=== PATIENT | male | born 1950 | race Caucasian/White ===

== ENCOUNTER → 2016-09-05 | Outpatient (CLI) | payer BC, OTHER ==
[~2016-09-05] MED LIST: CRG625 PO; CZR50 PO; HYG25 PO; KLN5 PO; MULT-589 PO; POTA10TA PO; [UNRECOGNIZED DRUG - CODE] PO
--- NOTE | 2016-09-05 13:37 | DIAGNOSTIC IMAGING REPORT ---
RIGHT KNEE INCLUDING BILATERAL STANDING AP VIEWS CLINICAL HISTORY: RIGHT KNEE PAIN Right COMPARISON: 06/03/2016 DISCUSSION: The joint spaces appear symmetric. No acute fractures are visualized. There are no erosive or destructive changes. There is a tiny dorsal patellar spur. A nonaggressive appearing fibro-osseous lesion involving the medial cortex of the distal left femoral metaphysis remain stable. IMPRESSION: 1. Minimal osteoarthritic changes. No acute fractures. Electronically signed by: Herson Wright M.D. 09/05/2016 1:35 PM Dictated Date/Time: 09/05/2016 1:34 PM
== END | disposition home or self-care (01) ==
LOC: C.RDSM 10:31
PROVIDERS: ATTEND Physical Medicine & Rehabilitation Sports Medicine
DX: M25.561 Pain in right knee (principal)

== ENCOUNTER → 2016-10-10 | Outpatient (CLI) | payer BC ==
--- NOTE | 2016-10-10 10:31 | DIAGNOSTIC IMAGING REPORT ---
MRI OF THE RIGHT KNEE CLINICAL HISTORY: Right knee pain an instability. COMPARISON STUDY: Radiographs of the right knee dated 09/05/2016. MRI of the right knee dated 07/10/2016. TECHNIQUE: MRI of the right knee was performed utilizing proton density, T1, and T2-weighted sequences in the axial, sagittal, coronal planes. IV contrast was not administered for this examination. Examination is significant degraded by open MRI technique. FINDINGS: Menisci: There is maceration and extensive degenerative tearing seen involving the body and posterior horn of the medial meniscus. There is persistent bucket-handle type tear, with a fragment flipped laterally along the femoral condyle. The lateral meniscus appears intact. Ligaments: The anterior and posterior cruciate ligaments are intact. There is high-grade (at least grade 2) tearing of the medial collateral ligament. Some of the fibers remain intact. The lateral collateral ligament complex appears preserved. Extensor mechanism: The extensor mechanism is intact. Hoffa's fat pad is normal in appearance. Articular cartilage and bone: There is mild degenerative thinning of the articular cartilage along the weightbearing surface in the medial and lateral compartments. There is minimal reactive marrow edema within the medial femoral condyle. The articular cartilage at the patellofemoral joint appears preserved. Bony contusion is identified within the medial femoral condyle and the medial tibial plateau. There is no MRI evidence of fracture. Joint effusion: There is a moderate joint effusion. Soft tissues: There is a large popliteal cyst which measures up to 7.5 cm. Subcutaneous soft tissue edema is present around the knee. The musculature surrounding the knee joint is normal in bulk and signal intensity. IMPRESSION: 1. There is extensive maceration with a bucket-handle type tear involving the body and posterior horn of the medial meniscus. The fragment is flipped laterally along the femoral condyle. 2. There is high-grade partial-thickness tearing of the medial collateral ligament. 3. The lateral collateral ligament complex, the cruciate ligaments, and the lateral meniscus appear preserved. 4. Bony contusions are identified within the medial femoral condyle and the medial tibial plateau. 5. Moderate joint effusion. 6. Minimal degenerative change as above. 7. Popliteal cyst. Electronically signed by: Christian Delgado M.D. 10/10/2016 10:29 AM Dictated Date/Time: 10/10/2016 10:20 AM
== END | disposition home or self-care (01) ==
LOC: C.OPENMRI 08:33
PROVIDERS: ATTEND Physical Medicine & Rehabilitation Sports Medicine
DX: M25.561 Pain in right knee (principal)

== ENCOUNTER → 2017-02-26 | Outpatient (CLI) | payer BC ==
[2017-02-26 13:48] LABS: BLOOD UREA NITROGEN 23 mg/dl (7-18); BUN/CREATININE RATIO 20.8 (10-20); CALCIUM 8.8 mg/dl (8.5-10.1); CARBON DIOXIDE 31 mmol/L (21-32); CHLORIDE 105 mmol/L (98-107); GLUCOSE 94 mg/dl (70-99); POTASSIUM 3.5 mmol/L (3.5-5.1); SODIUM 141 mmol/L (136-145)
== END | disposition home or self-care (01) ==
LOC: C.LABBC 09:25
PROVIDERS: ATTEND Physician Assistant
DX: Z00.00 Encounter for general adult medical examination without abnormal findings (principal); I10 Essential (primary) hypertension

== ENCOUNTER → 2017-03-08 | Outpatient (CLI) | payer BC ==
[~2017-03-08] MED LIST changes: +MAGNEVIST IV PRN
--- NOTE | 2017-03-08 11:04 | DIAGNOSTIC IMAGING REPORT ---
MRI OF THE BRAIN COMBO INTERNAL ARTERY CANAL PROTOCOL CLINICAL HISTORY: Meniere's disease. Dizziness. COMPARISON STUDY: MRI of the brain dated 05/19/2012. CT of the brain dated 09/15/2015. TECHNIQUE: MRI of the brain was performed utilizing various T1 and T2-weighted sequences in the axial, sagittal, and coronal planes. Contrast-enhanced sequences were acquired following the administration of 18 cc of Magnevist. Additional high-resolution imaging through the skull base was performed both pre and postcontrast for further assessment of the internal auditory canals. The multiple sclerosis protocol was also utilized. FINDINGS: Brain parenchyma: Again seen are numerous foci of T2 signal abnormality involving the subcortical and periventricular white matter. There is no hemorrhage or mass effect. No associated abnormal enhancement is identified on the postcontrast images. There is no restricted diffusion to suggest acute ischemia. No enhancing mass lesion is identified on the postcontrast images. Bynum-white matter differentiation is preserved. No extra-axial fluid collection is seen. The cerebellar tonsils are normal in configuration. Ventricles, sulci, and cisterns: Normal in configuration. Internal auditory canals: No enhancing mass lesion is identified in the cerebellopontine angle bilaterally. No mass or abnormal enhancement is identified along the course of the internal artery canals. The middle ear structures are normal as visualized. Pituitary and sella: Unremarkable. Intracranial vasculature: Normal flow voids are maintained at the skull base. Orbits: The bony orbits are grossly intact. Orbital contents are normal in appearance. Sinuses and mastoids: Clear. Calvarium: Unremarkable. Cervical cord: Partially visualized cervical spinal cord is normal in morphology and signal intensity. IMPRESSION: 1. No acute intracranial abnormality. 2. Unremarkable MRI assessment of the internal artery canals. 3. Again seen are numerous T2 hyperintense lesions involving the subcortical and periventricular white matter. This has modestly progressed from the 2012 examination. Differential considerations remain microangiopathic disease versus a demyelinating process such as multiple sclerosis. Electronically signed by: Christian Delgado M.D. 03/08/2017 11:03 AM Dictated Date/Time: 03/08/2017 10:51 AM
== END | disposition home or self-care (01) ==
LOC: C.MRIBC 02-26 09:04
PROVIDERS: ATTEND Physician Assistant
DX: G37.9 Demyelinating disease of central nervous system, unspecified (principal); R42 Dizziness and giddiness

== ENCOUNTER 2017-04-04 18:19 | Emergency (ER) | payer BC ==
[~2017-04-04 18:19] MED LIST changes: -MAGNEVIST IV PRN
== END 2017-04-04 18:30 | disposition left against medical advice (07) ==
LOC: C.EDB 18:20
DX: M25.562 Pain in left knee (principal)

== ENCOUNTER → 2017-04-23 | Outpatient (CLI) | payer BC ==
--- NOTE | 2017-04-23 14:59 | DIAGNOSTIC IMAGING REPORT ---
LUMBAR SPINE 5 VIEWS CLINICAL HISTORY: Low back pain. FINDINGS: 5 views of the lumbar spine are correlated with abdominal CT dated 01/20/2007. The skeletal structures are osteopenic. There is no radiographic evidence of fracture or malalignment. Vertebral body height and alignment are maintained. There is straightening of the lumbar lordosis. Small anterior osteophytes are seen throughout. The transverse and spinous processes appear intact. There is no evidence of spondylolysis. Mild facet arthropathy is seen in the lower lumbar region. There is advanced disc space narrowing at L5-S1 with associated endplate sclerosis. Mild disc space narrowing is seen at L1-L2 and L2-L3. The bony pelvis is intact as visualized. Mild sclerotic change is noted in the sacroiliac joints. There is a nonobstructed abdominal bowel gas pattern. There is mild atherosclerotic calcification of the abdominal aorta. IMPRESSION: 1. No acute bony abnormality is seen involving the lumbar spine. 2. Osteopenia and mild spondylotic change as above. Electronically signed by: Christian Delgado M.D. 04/23/2017 2:58 PM Dictated Date/Time: 04/23/2017 2:56 PM
== END | disposition home or self-care (01) ==
LOC: C.RDSM 12:29
PROVIDERS: ATTEND Internal Medicine
DX: M54.5 Low back pain (principal)

== ENCOUNTER → 2017-11-26 | Outpatient (CLI) | payer OTHER ==
--- NOTE | 2017-11-26 11:42 | DIAGNOSTIC IMAGING REPORT ---
R KNEE 4 OR MORE CLINICAL HISTORY: RIGHT KNEE PAIN COMPARISON STUDY: Right knee 09/05/2016. FINDINGS: Mild cartilage space narrowing within the medial compartment of the right knee, unchanged. No fracture or dislocation. Soft tissues are unremarkable. No knee effusion. Stable 1.4 cm fibro-osseous lucent lesion within the distal left femur. This has a nonaggressive appearance. Tiny marginal osteophytes within the patella. IMPRESSION: No change from the prior study. Minimal osteoarthritic changes within the right knee are again noted. Electronically signed by: Waqar Dan M.D. 11/26/2017 11:41 AM Dictated Date/Time: 11/26/2017 11:39 AM
== END | disposition home or self-care (01) ==
LOC: C.RDSM 11:10
PROVIDERS: ATTEND Internal Medicine
DX: M25.561 Pain in right knee (principal)

== ENCOUNTER 2022-06-26 05:05 | Observation (INO) ==
--- NOTE | 2022-06-06 08:51 | PAT Medication Instructions ---
Medication Instructions Date of Service June 06, 2022 Home Medications Medication Instructions Recorded sildenafil 50 mg tablet 50 mg PO DAILY PRN sexual activity 02/17/21 #30 tabs carvedilol 6.25 mg tablet 6.25 mg PO BID #180 tabs 09/29/21 potassium chloride 10 mEq 10 meq PO .COMPLEX #270 Tabs 09/29/21 tablet,extended release fluvoxamine 100 mg tablet 25 mg PO QPM multivitamin (Daily Multi-Vitamin tablet) 1 tab PO QAM sildenafil 50 mg tablet 50 mg PO DAILY PRN cholecalciferol (vitamin D3) 1 tab PO QAM carvedilol 6.25 mg tablet 6.25 mg PO BID potassium chloride 10 mEq tablet,extended release 10 meq PO .COMPLEX clonazepam 0.5 mg tablet 0.125 mg PO BID atorvastatin 10 mg tablet 10 mg PO QPM chlorthalidone 25 mg tablet 25 mg PO QPM losartan 100 mg tablet 100 mg PO QPM DO NOT take the morning of surgery multivitamin (Daily Multi-Vitamin tablet) 1 tab PO QAM sildenafil 50 mg tablet 50 mg PO DAILY PRN cholecalciferol (vitamin D3) 1 tab PO QAM potassium chloride 10 mEq tablet,extended release 10 meq PO .COMPLEX Take morning of surgery With a small sip of water, OTHERWISE NOTHING TO EAT OR DRINK AFTER MIDNIGHT: carvedilol 6.25 mg tablet 6.25 mg PO BID clonazepam 0.5 mg tablet 0.125 mg PO BID Take evening before surgery fluvoxamine 100 mg tablet 25 mg PO QPM carvedilol 6.25 mg tablet 6.25 mg PO BID clonazepam 0.5 mg tablet 0.125 mg PO BID atorvastatin 10 mg tablet 10 mg PO QPM chlorthalidone 25 mg tablet 25 mg PO QPM losartan 100 mg tablet 100 mg PO QPM Other Notes If you have any questions please call us at [phone] or [phone] or [phone] or [phone]
--- NOTE | 2022-06-12 13:08 | Anesthesiology Consultation ---
Date of Service June 12, 2022 Assessment & Plan (1) Encounter for pre-operative examination: Chart Review Chart Review: Acceptable Risk for Surgery and Patient seen in Pre Admission Testing Pt currently scheduled as 23 hour observation. If surgeon decides to change patient to Same Day Joint, patient would be acceptable risk for TKA, pending patient is motivated, has good support and surgeon's office completes [facility] preop requirements. Per [facility] appt on 06/12/22, patient denies any recent travel or large group activities. Pt is vaccinated for Covid. Pt did test positive for Covid one month ago (home test). Had fatigue, loss of taste, cough, SOB, fever. Symptoms have since resolved. PCR Covid test done at [facility] appt on 06/12/22=negative. Educated on importance of using Covid precautions one week prior to surgery PCP Clearance Request 06/11/22= "Yes" patient is medically cleared for surgery. Last seen by nephrology 05/17/22= Pt follows with nephro for HTN. BP improved from prior and overall acceptable. BP controlled with current medications. Component of white coat HTN. Has chronic bradycardia but also appears to be tolerating carvedilol well. Follow up in six months. BP 128/86 Teaching & Discussion Pre-Anesthesia Teaching/Discussion Notes: Instructed NPO after midnight before surgery,except medications with 15 cc of water. Medication instructions provided according to the [facility] guidelines. History Surgery Operation Date: 06/26/22 07:00 Proposed Procedures p Right Total Knee Arthroplasty - Dong Bazzi MD Height/Weight Height: 5 ft 10.5 in Weight: 97.3 kg Allergies Allergy/AdvReac Type Severity Reaction Status Date / Time amoxicillin Allergy Unknown Rash Verified 06/05/22 15:43 clavulanic acid Allergy Unknown RASH Verified 06/05/22 15:43 [From Augmentin] lactose Allergy Unknown GI UPSET Verified 06/05/22 15:43 levofloxacin [From Levaquin] Allergy Unknown RASH Verified 06/05/22 15:43 Penicillins Allergy Unknown Rash Verified 06/05/22 15:43 codeine AdvReac Unknown ileus Verified 06/05/22 15:43 Medications Home Medications Medication Instructions Recorded Confirmed Last Taken fluvoxamine 100 mg tablet 25 mg PO QPM #90 tabs 06/25/19 06/05/22 Unknown multivitamin (Daily Multi-Vitamin 1 tab PO QAM 06/25/19 06/05/22 Unknown tablet) sildenafil 50 mg tablet 50 mg PO DAILY PRN sexual activity 02/17/21 06/05/22 Unknown #30 tabs cholecalciferol (vitamin D3) 1 tab PO QAM 05/12/21 06/05/22 Unknown carvedilol 6.25 mg tablet 6.25 mg PO BID #180 tabs 09/29/21 06/05/22 Unknown potassium chloride 10 mEq 10 meq PO .COMPLEX #270 Tabs 09/29/21 06/05/22 Unknown tablet,extended release clonazepam 0.5 mg tablet 0.125 mg PO BID 11/10/21 06/05/22 Unknown atorvastatin 10 mg tablet 10 mg PO QPM 06/05/22 06/05/22 Unknown chlorthalidone 25 mg tablet 25 mg PO QPM 06/05/22 06/05/22 Unknown losartan 100 mg tablet 100 mg PO QPM 06/05/22 06/05/22 Unknown Past Medical History Medical History Hearing deficit BL GREEN- Wears hearing aids bilaterally History of meningitis 1983 History of migraine HLD (hyperlipidemia) Pt denies- takes statin for preventative secondary to age Hypertension Menieres disease Intermittent - improved with exercises Exercise / Class Metabolic Activity II 4-5 Yardwork/Stairs/Walk up hill (one flight of stairs - no chest pain or SOB ) Past Family History Family History Father Hypertension Cancer Mother Stroke Denies family history of Hearing loss No family history of adverse response to anesthesia No family history of bleeding disorder Heart disease Allergies Kidney disease Asthma Past Surgical History Surgical History H/O elbow surgery 2016 - Lt H/O foot surgery 2005 - Rt H/O neck surgery 2018 & 2019 History of arthroscopic knee surgery Rt History of back surgery History of cervical spinal surgery limited ROM "painful to look up" History of colonoscopy History of nasal polypectomy Hx of appendectomy Past Anesthesia History No Hx of Anesthesia Complications and No Family Hx of Anesthesia Complications History of PONV No Hx of PONV and No Hx of Motion Sickness Social History Smoking Status: Never smoker Do You Dip or Chew Tobacco: No Hx Alcohol Use: Yes Alcohol type: beer alcohol intake frequency: a few times a week Hx Substance Use: No substance use type: does not use Review of Systems Minimal residual cough - just in the morning- mild- dry- since Covid infection one month ago- significantly improved Hx of snoring - no witnessed apnea- no hx of sleep study Patient denies chest pain, shortness of breath, dyspnea on exertion, reflux, wheezing, palpitations. No hx of seizures, stroke, [place]. No hx of blood clots or blood transfusions Physical Exam Vital Signs VITALS BP 180/90 (on recheck manually- patient will check BP at home and follow up with Dr. Gong if BP still elevated) P 50 TEMP 97.8 SP02 98% RESP 16 Constitutional no acute distress ENMT Mouth: no TMJ clicking Thyromental Distance: > or= 3.5 Finger Breadths (3.5) Mallampati Class: I Crowns to molars Neck + limited neck extension (significant ) Respiratory normal respiratory effort; no respiratory distress Auscultation: lungs clear to auscultation bilaterally; no wheezes Cardiovascular Rate/Rhythm: regular rate and regular rhythm Heart Sounds: no murmur Vessels: no carotid bruit Musculoskeletal Spine: + pain with cervical ROM Extremities: extremities normal to inspection Psychiatric Orientation: alert Lab Results Anesthesia Preop Results Results Anesthesia Widget: WBC 8.28 K/ul (4.8-10.8) 06/12/22 Hgb 16.5 g/dl (14.0-18.0) 06/12/22 Hct 43.5 % (40.1-51.0) 06/12/22 Plt 187 K/uL (130-400) 06/12/22 Na 139 mmol/L (136-145) 06/12/22 K 3.8 mmol/L (3.5-5.1) 06/12/22 Cl 103 mmol/L (98-107) 06/12/22 CO2 31 mmol/L (21-32) 06/12/22 BUN 33 mg/dl (6-23) H 06/12/22 Creat 0.77 mg/dl (0.6-1.4) 06/12/22 Glucose Level 86 mg/dl (70-99(Fasting)) 06/12/22 PT 11.4 Seconds (9.0-12.0) 06/12/22 PTT 27.6 Seconds (21.0-31.0) 06/12/22 INR 1.1 (0.9-1.1) 06/12/22 Blood Type O Positive 06/12/22 Antibody Screen NEGATIVE 06/12/22 Testing Electrocardiogram Date: 06/12/22 SB with PACs at 51bpm. Otherwise normal EKG per cardio. Chest X-Ray Date: 06/12/22 Findings: + NAD Other Testing Cervical Spine MRI 10/12/21= Evidence for stable postsurgical changes at C5-6. Small paracentral disc protrusion/herniation at the 3-4 on the left. Bulging annuli at C4-5 and C6-7, the disc space levels above and below the spine fusion. COVID-19 Risk Screen Screening Information COVID-19 Screen Date: 06/12/22 Exposure 21 Days Family/Household +COVID Last 21 Days: No Exposure 10 Days Any COVID Exposure Last 10 Days: No Symptoms Last 10 Days Experienced COVID Sx Last 10 Days: No + COVID 0-90 Days COVID + in Last 0-90 Days: Yes + COVID Test 0-10 Day: No + COVID Test 11-90 Day: Yes Date/Place of COVID-19 Test: Around 05/12/22 What were Your COVID-19 Symptoms: Fatigue, loss of taste, cough, SOB, fever Currently Having Symptoms Related to COVID: No Were You Hospitalized due to COVID-19 and Where: No COVID Testing Site COVID-19 Preop/Pre-Procedure Testing Site: [facility] (06/12/22= negative ) Risk Plan COVID Risk Plan: Last + CoV Test Patient Education COVID Preop Screening Education Complete: Yes
[2022-06-26] MEDS ORDERED: ROPIVACAINE 0.5% HCL/PF 150 MG, BUPIVACAINE 0.75% MPF 20 ML, EPINEPHrine 0.15 MG, Ketor... INFIL SCH (06:00)
[2022-06-26] MEDS ORDERED: FAMOTIDINE 20 MG TAB PO SCH (06:00)
[2022-06-26] MEDS ORDERED: dexAMETHasone 4 MG TAB PO SCH (06:00)
[2022-06-26] MEDS ORDERED: traMADol HCL 50 MG TABLET PO SCH (06:00)
[2022-06-26] MEDS ORDERED: TRANEXAMIC ACID 1,000 MG **IV Intra-op IV SCH (06:00)
[2022-06-26] MEDS ORDERED: oxyCODONE HCL 10 MG TABCR (OxyCONTIN) PO SCH (06:00)
[2022-06-26] MEDS ORDERED: ACETAMINOPHEN 500 MG TAB PO SCH (06:00)
[2022-06-26] MEDS ORDERED: TRANEXAMIC ACID 1,000 MG **IV Pre-op IV SCH (06:00)
[2022-06-26] MEDS ORDERED: cloNIDine HCL 0.1 MG/24 HR TRANSDERM SYS TD SCH (06:00)
[2022-06-26] MEDS ORDERED: CeleBREX 200 MG CAP PO SCH (06:00)
[2022-06-26] MEDS ORDERED: ceFAZolin 2000MG 2,000 MG/15 ML SYR IV SCH (06:00)
[2022-06-26] MEDS ORDERED: LR 500ML BOLUS, THEN 15ML/HR IV SCH (06:00)
[2022-06-26] MEDS ORDERED: LR 60ML/HR IV SCH (06:00)
[2022-06-26] MEDS ORDERED: METOCLOPRAMIDE HCL 10 MG TABLET PO SCH (06:00)
[2022-06-26] MEDS ORDERED: GABAPENTIN 300 MG CAP PO SCH (06:00)
[2022-06-26] MEDS ORDERED: BUPIVACAINE 0.5 % 5 MG/1 ML PF 10ML VIAL ONE (06:25)
[2022-06-26] MEDS ORDERED: ROPIVACAINE 0.5% 5 MG/ML 30 ML VIAL ONE (06:26)
[2022-06-26] MEDS ORDERED: MIDAZOLAM HCL 1 MG/ML 2ML VIAL ONE (06:40)
[2022-06-26] MEDS ORDERED: fentaNYL citrate 100 MCG/2 ML VIAL ONE (06:40)
[2022-06-26] MEDS ORDERED: ORTHO JOINT ANESTHETIC ONE (06:48)
--- NOTE | 2022-06-26 06:48 | History & Physical Bridge Note ---
Date of Service June 26, 2022 History & Physical Bridge Note I have examined the patient, reviewed the History & Physical and in the interval since the performance of the History & Physical I have noted the following changes of clinical significance: no changes noted
[2022-06-26] MEDS ORDERED: VANCOMYCIN HCL 1000MG/20ML VIAL ONE (06:49)
[2022-06-26] MEDS ORDERED: ATROPINE SULFATE 0.1 MG/ML 10ML SYR IV PRN (07:12)
[2022-06-26] MEDS ORDERED: HYDROmorphone INJ 2 MG/ML SYR/VIAL IV PRN (07:12)
[2022-06-26] MEDS ORDERED: ePHEDrine sulfate 50 MG/ML AMP IV PRN (07:12)
[2022-06-26] MEDS ORDERED: fentaNYL citrate 100 MCG/2 ML VIAL IV PRN (07:12)
[2022-06-26] MEDS ORDERED: ONDANSETRON INJ 2 MG/ML 2 ML VIAL IV PRN ×2 (07:12→12:23)
[2022-06-26] MEDS ORDERED: LIDOCAINE 2% MPF LOCAL 5 ML VIAL INFIL ONE (08:17)
[2022-06-26] MEDS ORDERED: PROPOFOL IV EMULSION 10 MG/ML 20 ML VIAL IV ONE (08:17)
[2022-06-26] MEDS ORDERED: ONDANSETRON INJ 2 MG/ML 2 ML VIAL ONE (08:17)
--- NOTE | 2022-06-26 09:43 | Operative Report ---
Post Operative Report Pre & Post Diagnosis Operation Date: 06/26/22 07:00 Pre-Op Diagnosis: Right Knee Osteoarthritis Post-Op Diagnosis: Right Knee Osteoarthritis I identified the patient and participated in the time-out.: Yes Procedure Operation Date: 06/26/22 07:00 Actual Procedures p Right Total Knee Arthroplasty(Right) - Dong Bazzi MD Surgeon Dong Bazzi MD [employer] Hortencia Javier no resident or fellow available Estimated Blood Loss 5 Findings Consistent with Post-Op Diagnosis Specimens Resected bone and soft tissue Anesthesia Type MAC Spinal Regional Complications none Disposition Accompanied Patient To Recovery: No Disposition: Recovery Room Indications Abdiel is 71 and has right knee pain refractory to nonsurgical methods of management. He has medial compartment osteoarthritis and is elected to proceed with a knee replacement. Description of Procedure Informed consent obtained. Patient identified. He identified the operative site as the right knee. I marked with my initials. Preop surgical timeout performed. Preop dose of IV antibiotics given. TXA given. He was taken to the operating room positioned supine on the OR table. He did not have a flexion contracture. His knee flexion was approximately 140 degrees. There was a varus alignment with 1+ LCL laxity in mid position the knee was otherwise stable posterior drawer and Lockman maneuver intact no effusion. The leg was placed scrubbed prepped and draped in usual sterile fashion. A tourniquet was applied to the right thigh and a bump under the right hip. DVT prophylaxis with impulse foot pumps intraoperatively. Postop mechanical devices early mobility and Lovenox. Limb exsanguinated with the Esmarch. Tourniquet inflated 250 mmHg and later up to 275 mmHg. A midline longitudinal incision was made about 20 cm in length. This was followed by medial parapatellar arthrotomy. The synovial reflection in the lateral gutter did not need to be divided. The soft tissue on the anterior aspect the distal femur was resected. An extensile medial release was performed. The retropatellar fat pad was resected. The knee was easily flexed. There was a 1 x 2 cm area of grade 4 chondrosis in the weightbearing area of the medial femoral condyle and a 1.5 x 2 cm area of grade 4 chondrosis in the corresponding area of the tibial plateau. The medial meniscus was deficient. There was grade 1 and 2 chondrosis of the patella with mild marginal osteophytes. Marginal osteophytes more so medial compartment versus lateral although small in nature. The lateral compartment looked normal the cruciate ligaments were intact. The cruciate ligaments were resected. The medial lateral menisci were resected. The tibia was subluxated. A banquet pilot hole was drilled just in front of and between the tibial spines. Intramedullary alignment trisha was inserted. The guide was set for a 10 mm thick cut laterally corresponding to 4 mm medially. 0 degree cutting block. This was pinned into place and was aligned with the tibial tubercle. The extra medullary alignment guide confirmed slope and alignment bisecting the ankle joint and intersecting the second ray. There may have been a degree or 2 of posterior slope present. This cut was made and sized to a 3 or possibly a 4. A banquet pilot hole was drilled in the distal femur followed by the insertion of distal femoral cutting block. 12 mm thick cut 6 degree valgus right knee. This was pinned into place and the cut was made. Epicondylar axis marked out. The extension gap was a 10 with slight laxity lateral. Distal femoral sizing guide was applied. Sized to a 4. The appropriate external rotation drill holes were made which matched the epicondylar axis. The size 4 anterior down cutting block was applied pinned into place. The collateral ligaments were protected and the cuts were made. Osteophytes under the medial collateral ligament were removed. The flexion gap was then asymmetric 10. The box cutting guide was applied lateralized and that cut was made as well. Posterior osteophytes were removed on the femur very minimal medial. The size 4 block was applied to the femur. The tibia was prepared with the keel and punch. A size 3 was utilized. The trial 10 showed full extension no laxity at 90 or 0 and 1+ LCL laxity in mid position. The patella was measured to be 23 mm in thickness. The guide was set to preserve 15 mm of bone. The 35 mm patella was selected. The cut was made. Drill holes were made into the medial tibial plateau and into the patella as the bone there was hard. The patellar paddle was aligned to the trochlea of the knee in flexion. The patella was distal lysed and medialized and the lug holes were drilled. Patellar tracking was fine for no hands technique. Lateral release not needed. Components removed. The canals were plugged with bone and Ortho joint mix injected into the back of the knee. The bony surfaces were prepared with meticulous pulsatile lavage. 2 bags of Simplex P cement were mixed and while in a doughy state smears were applied posteriorly followed by cementation of the femur tibia and patella. The knee was held in full extension with a patellar clamp until the cement had hardened. At this time after 85 minutes of tourniquet the tourniquet was let down and meticulous hemostasis was performed. Trialing was again performed with the tendon found to have the after mentioned laxity profile. A 12.5 would not fit. Composite patellar thickness was 23. After the extensor mechanism was close gravity assisted flexion was 130 degrees. The knee was fully straight neutrally aligned. Back the knee was inspected for cement. Meticulous hemostasis was performed along with copious irrigation. The final polyethylene insert was applied. The extensor mechanism was closed above the equator of the patella with interrupted #2 FiberWire and below with running and interrupted #1 Vicryl. The skin was closed in layers with 0 and 2-0 Vicryl followed by neva on the skin. The leg was cleaned with wet and dry sponges and a bulky soft sterile dressing was applied Xeroform 4 x 4's ABD soft wrap Real wrap. Knee immobilizer. Patient awakened from anesthesia without difficulty and taken to the recovery room in stable condition. The resected bone and soft tissue were sent for specimen. Counts were correct and blood loss is estimated to be 5 cc. At the conclusion the operation spoke the patient's girlfriend informed her of my findings and discussed the postoperative plan. He can be rehabilitated according to the total knee protocol. Components inserted were the [employer] Sigma rotating platform knee. A 35 patella. Size 410 mm thick polyethylene spacer. A size 3 mobile-bearing keeled tibial tray and a size 4 right posterior stabilized femur. I attest to the content of the Intraoperative Record and any orders documented therein. Any exceptions are noted below.
--- NOTE | 2022-06-26 09:48 | Operative Report ---
Post Operative Report Pre & Post Diagnosis Operation Date: 06/26/22 07:00 Pre-Op Diagnosis: Right Knee Osteoarthritis Post-Op Diagnosis: Right Knee Osteoarthritis I identified the patient and participated in the time-out.: Yes Procedure Operation Date: 06/26/22 07:00 Actual Procedures p Right Total Knee Arthroplasty(Right) - Dong Bazzi MD Surgeon Dong Bazzi M.D. Envelope Addresser Hortencia Javier PA-C; no resident or fellow available Estimated Blood Loss 5 Findings Consistent with Post-Op Diagnosis Specimens bone and soft tissue Anesthesia Type MAC Spinal Regional Description of Procedure Patient was taken to the operating room, placed under general anesthesia, time out performed, prepped and draped in routine sterile fashion. I was present during the entire case, please see Dr. Bazzi's operative report for further detail. Patient was awakened and taken to the recovery room in stable co ndition. I attest to the content of the Intraoperative Record and any orders documented therein. Any exceptions are noted below.
--- NOTE | 2022-06-26 12:06 | Anesthesiology Progress Note ---
Date of Service June 26, 2022 Anesthesia Post Procedure Vital Signs Vital Signs: Temp Pulse Pulse Resp BP Pulse Ox O2 Del Method 06/26/22 11:30 44 L 12 147/82 H 94 Room Air 06/26/22 11:00 44 L 12 169/79 H 92 Room Air 06/26/22 10:45 44 L 12 174/82 H 93 Room Air 06/26/22 10:30 45 L 14 163/90 H 94 Room Air 06/26/22 10:15 36.2 C L 45 L 17 145/82 H 96 Room Air 06/26/22 10:05 40 L 12 135/73 98 Oxymask 06/26/22 09:55 41 L 10 L 139/80 100 Oxymask 06/26/22 09:46 36.3 C L 42 L 15 133/77 99 Oxymask 06/26/22 05:29 36.9 C 50 L 18 194/87 H 95 Room Air O2 Flow Rate 06/26/22 11:30 06/26/22 11:00 06/26/22 10:45 06/26/22 10:30 06/26/22 10:15 06/26/22 10:05 4 06/26/22 09:55 4 06/26/22 09:46 4 06/26/22 05:29 Transfer of Care Handoff Completed per policy Notes Mental Status: alert / awake / arousable and participated in evaluation Patient Amnestic to Procedure: Yes Nausea / Vomiting: adequately controlled Pain: adequately controlled Airway Patency, RR, SpO2: stable & adequate BP & HR: stable & adequate Hydration State: stable & adequate Neuraxial Anesthesia: was administered and sensory block is resolving Anesthetic Complications: no major complications apparent and Pt Satisfied with anesthetic care
[2022-06-26] MEDS ORDERED: MAGNESIUM HYDROXIDE SUSP 30 ML UDC PO PRN (12:23)
[2022-06-26] MEDS ORDERED: HYDROmorphone INJ 1 MG/ML SYRINGE IV PRN (12:23)
[2022-06-26] MEDS ORDERED: HYDROmorphone INJ 0.5 MG/0.5 ML SYR IV PRN (12:23)
[2022-06-26] MEDS ORDERED: oxyCODONE HCL IR 5 MG TAB (IMMEDIATE RELEASE) PO PRN (12:23)
[2022-06-26] MEDS ORDERED: NALOXONE HCL 0.4 MG/1 ML VIAL/CARP IV PRN (12:23)
[2022-06-26] MEDS ORDERED: TAMSULOSIN HCL 0.4 MG CAP PO PRN (12:23)
[2022-06-26] MEDS ORDERED: bisacodyL 10 MG SUPP PR PRN (12:23)
[2022-06-26] MEDS: CHECK CLONIDINE PATCH PLACEMENT SCH ×3 (12:30→16:40)
--- NOTE | 2022-06-26 12:42 | XRay Report ---
RIGHT KNEE 2 VIEWS History: Right total knee arthroplasty. Degenerative arthritis. Postop. FINDINGS: The patient is status post a right total knee arthroplasty. The hardware is intact. No frac ture or dislocation. Skin neva are in place. IMPRESSION: Right total knee arthroplasty. No evidence for hardware complication. ACT 112: Negative or not required by law. Electronically signed by: Waqar Dan M.D. 06/26/2022 12:41 PM
[2022-06-26] MEDS: SODIUM CHLORIDE 0.9% 1000ML 1,000 ML IV SCH (13:18)
[2022-06-26] MEDS: KETOROLAC TROMETHAMINE 15 MG/ML VIAL IV SCH ×2 (13:19→18:24)
--- NOTE | 2022-06-26 13:20 | Orthopedic Progress Note ---
Date of Service June 26, 2022 Assessment & Plan (1) S/P total knee arthroplasty: Plan: Doing well. Surgical findings discussed. Radiographs show no evidence of complication and good positioning of the implants. Discussed pain control. Plan to rehab according to the standard knee replacement pathway. He may weight-bear as tolerated. Vitals are stable. Admission and Anticipated Discharge Date Admission Date: June 26, 2022 Subjective Pain is well controlled. The block is wearing off. Physical Exam Physical Exam: The foot is warm and capillary refill less than 2 seconds. DP pulses not palpable but PT pulses trace. Tingling throughout the foot. He can wiggle his toes but has difficulty with ankle plantarflexion dorsiflexion. The dressing is clean and dry. Results & Data ([facility]) Vital Signs (Past 12 Hours) Vital Signs Temp Pulse Pulse Resp BP BP Pulse Ox 06/26/22 12:15 36.4 C L 47 L 14 178/84 H 97 06/26/22 12:45 36.3 C L 48 L 16 167/82 H 94 06/26/22 11:30 44 L 12 147/82 H 94 06/26/22 11:00 44 L 12 169/79 H 92 06/26/22 10:45 44 L 12 174/82 H 93 06/26/22 10:30 45 L 14 163/90 H 94 06/26/22 10:15 36.2 C L 45 L 17 145/82 H 96 06/26/22 10:05 40 L 12 135/73 98 06/26/22 09:55 41 L 10 L 139/80 100 06/26/22 09:46 36.3 C L 42 L 15 133/77 99 06/26/22 05:29 36.9 C 50 L 18 194/87 H 95 O2 Del Method O2 Flow Rate 06/26/22 12:15 Room Air 06/26/22 12:45 Room Air 06/26/22 11:30 Room Air 06/26/22 11:00 Room Air 06/26/22 10:45 Room Air 06/26/22 10:30 Room Air 06/26/22 10:15 Room Air 06/26/22 10:05 Oxymask 4 06/26/22 09:55 Oxymask 4 06/26/22 09:46 Oxymask 4 06/26/22 05:29 Room Air
[2022-06-26] MEDS: ACETAMINOPHEN 500 MG TAB PO SCH ×2 (14:19→21:06)
[2022-06-26] MEDS: ceFAZolin 2000MG 2,000 MG/15 ML SYR IV SCH (16:37)
[2022-06-26] MEDS ORDERED: SENNA 8.6 MG TAB PO SCH (21:00)
[2022-06-26] MEDS ORDERED: CHLORTHALIDONE 25 MG TAB PO SCH (21:00)
[2022-06-26] MEDS ORDERED: ATORVASTATIN 10 MG TAB PO SCH (21:00)
[2022-06-26] MEDS ORDERED: POTASSIUM CHLORIDE 10 MEQ TABCR PO SCH (21:00)
[2022-06-26] MEDS ORDERED: LOSARTAN POTASSIUM 50 MG TAB PO SCH (21:00)
[2022-06-26] MEDS: DOCUSATE SODIUM 100 MG CAP PO SCH (21:05)
[2022-06-26] MEDS: ENOXAPARIN INJ 30 MG/0.3 ML SYR SQ SCH (21:06)
[2022-06-26] MEDS: carvediloL 6.25 MG TAB PO SCH (21:19)
[2022-06-26] MEDS: clonazePAM 0.25 MG TAB PO SCH (21:22)
[2022-06-27] MEDS: CHECK CLONIDINE PATCH PLACEMENT SCH ×2 (00:20→08:36)
[2022-06-27] MEDS: ceFAZolin 2000MG 2,000 MG/15 ML SYR IV SCH (00:20)
[2022-06-27] MEDS: KETOROLAC TROMETHAMINE 15 MG/ML VIAL IV SCH ×2 (00:20→06:39)
[2022-06-27] MEDS: SODIUM CHLORIDE 0.9% 1000ML 1,000 ML IV SCH (00:21)
[2022-06-27] MEDS: ACETAMINOPHEN 500 MG TAB PO SCH ×2 (06:40→14:44)
[2022-06-27 07:03] LABS: BUN Creatinine Ratio 32.6 (10-20); Calcium 8.1 mg/dl (8.5-10.1); Creatinine Clr Calc Pharmacy 85.3 ml/min; Est GFR (African American) 94.3 ml/min; Est GFR (Non-African American) 81.3 ml/min; Potassium 3.4 mmol/L (3.5-5.1)
[2022-06-27] MEDS ORDERED: dexAMETHasone 4 MG TAB PO SCH (08:00)
[2022-06-27] MEDS: ENOXAPARIN INJ 30 MG/0.3 ML SYR SQ SCH (08:38)
[2022-06-27] MEDS: DOCUSATE SODIUM 100 MG CAP PO SCH (08:38)
[2022-06-27] MEDS: carvediloL 6.25 MG TAB PO SCH (08:39)
[2022-06-27] MEDS: clonazePAM 0.25 MG TAB PO SCH (08:43)
[2022-06-27] MEDS ORDERED: CHOLECALCIFEROL 1,000 UNITS 25 MCG TAB PO SCH (09:00)
[2022-06-27] MEDS ORDERED: POTASSIUM CHLORIDE 10 MEQ TABCR PO SCH (09:00)
[2022-06-27] MEDS ORDERED: MULTIVITAMIN TAB PO SCH (09:00)
[2022-06-27 09:14] LABS: Hematocrit (blood only) 36.5 % (40.1-51.0); Mean Corpuscular Hemoglobin 32.1 pg (25.0-34.0); Mean Corpuscular Hgb Conc 35.6 g/dL (32.0-36.0); Mean Corpuscular Volume 90.1 fL (80.0-100.0); Mean Platelet Volume 13.1 fL (9.4-12.4); Platelet Count 150 K/uL (130-400); RDW Coefficient of Variation 13.2 % (11.5-14.5); RDW Standard Deviation 43.5 fL (36.4-46.3); Red Blood Count 4.05 M/uL (4.63-6.08)
--- NOTE | 2022-06-27 09:19 | Orthopedic Progress Note ---
Date of Service June 27, 2022 Assessment & Plan (1) S/P total knee arthroplasty: Plan: Doing well. Surgical findings discussed. Radiographs show no evidence of complication and good positioning of the implants. Discussed pain control. Plan to rehab according to the standard knee replacement pathway. He may weight-bear as tolerated. Vitals are stable. Admission and Anticipated Discharge Date Admission Date: June 26, 2022 Results & Data ([facility]) Vital Signs (Past 12 Hours) Vital Signs Temp Pulse Resp BP Pulse Ox O2 Del Method 06/27/22 07:48 36.4 C L 47 L 16 117/66 97 Room Air 06/27/22 02:59 36.4 C L 51 L 16 129/69 95 Room Air 06/26/22 22:36 36.4 C L 50 L 16 162/77 H 96 Room Air
[2022-06-27] MEDS: traMADol HCL 50 MG TABLET PO PRN ×2 (09:25→13:53)
--- NOTE | 2022-06-27 09:43 | Progress Notes ---
DATE OF SERVICE: 06/27/2022. Abdiel is resting comfortably in bed. His pain is well controlled. He is afebrile. His vital signs a re stable. Urine output is adequate. White count is 20 likely secondary to stress reaction, hemoglo bin 13, hematocrit 37, platelets are 150. His PRP is noted. Potassium is slightly low. BUN a littl e bit better than baseline. New radiographs were reviewed with him. Good positioning, no evidence o f complication. Dressing clean and dry. DP and PT pulses are both 1+. He has normal sensation throughout the foot, the foot is warm. He has intact ankle and toe plantar flexion, dorsiflexion, inversion and eversion, strength 5/5. Postoperative day #1, status post right total knee replacement. PLAN: Routine postop rehab and recovery/protocol. Weightbear as tolerated with knee immobilizer. P T and OT. We will reassess this afternoon for disposition. We talked about followup, activity restr ictions, wound care therapy, medications. He will be on Lovenox 30 mg subcutaneous b.i.d. for 2 week s. Importance of rest, elevation discussed. If there is any ongoing wound drainage, we need to know about it. He will have home therapy and nursing. Job ID: [id number]
--- NOTE | 2022-06-27 17:28 | Discharge Summary ---
Date of Service June 27, 2022 Discharge Data Procedures Performed Operation Date: 06/26/22 07:00 Actual Procedures p Right Total Knee Arthroplasty(Right) - Dong Bazzi MD Hospital Course (1) S/P total knee arthroplasty: Patient was admitted to [facility] after undergoing elective right total knee arthroplasty with Dr. Bazzi on June 26, 2022. His surgery was performed with spinal anesthesia and a peripheral nerve block. He tolerated the procedure well without any intraoperative complications. He was given 2 g of IV Ancef preoperatively which was continued for 24 hours after surgery. Postoperative x-rays of his right knee showed a stable prosthesis in good alignment. No evidence of fracture. His home medications were continued. He was given a regular diet during his inpatient stay. He was given IV Dilaudid, oxycodone, tramadol, Toradol and Tylenol to assist with his postoperative pain. He was seen and evaluated by physical therapy and Occ upational Therapy on postoperative day 1. His postoperative dressings remained in place during his inpatient stay. He was given Lovenox 30 mg twice daily which was started on the evening of surgery for DVT prophylaxis. He was also given PATRICIA stockings and AV impulse boots. He was seen and evaluated by case management. A prescription was provided for him for a rolled walker. Home health was arranged. He was deemed safe for discharge by physical therapy and Occupational Therapy. He did not develop any postoperative complications. His postoperative CBC and BMP was stable. Discharge instructions were reviewed. He was discharged to his home in stable condition on June 27, 2022 with his .
== END 2022-06-27 15:54 | disposition home or self-care (01) ==
LOC: PACUINP 05:05 → ASU 05:05 → 3E 12:18

== ENCOUNTER 2024-06-03 11:26 | Observation (INO) ==
[2024-06-03 12:58] LABS: Basophils # (auto) 0.06 K/uL (0.00-0.20); Basophils % (auto) 0.7 %; Eosinophils # (auto) 0.15 K/uL (0.00-0.50); Eosinophils % (auto) 1.9 %; Hematocrit (blood only) 47.6 % (42.0-52.0); Hemoglobin 17.4 g/dl (14.0-18.0); Immature Granulocytes # (auto) 0.02 K/uL (0.01-0.20); Immature Granulocytes % (auto) 0.2 %; Lymphocytes # (auto) 1.61 K/uL (1.20-3.40); Lymphocytes % (auto) 19.9 %; Mean Corpuscular Hemoglobin 31.6 pg (25.0-34.0); Mean Corpuscular Hgb Conc 36.6 g/dL (32.0-36.0); Mean Corpuscular Volume 86.4 fL (80.0-100.0); Mean Platelet Volume 11.8 fL (9.4-12.4); Monocytes # (auto) 0.51 K/uL (0.11-0.59); Monocytes % (auto) 6.3 %; Neutrophils # (auto) 5.75 K/uL (1.40-6.50); Platelet Count 194 K/uL (130-400); Red Blood Count 5.51 M/uL (4.70-6.10)
[2024-06-03 13:30] LABS: Adenovirus PCR Not Detected (NotDetected); Bordetella parapertussis PCR Not Detected (NotDetected); Bordetella pertussis PCR Not Detected (NotDetected); Chlamydia pneumoniae PCR Not Detected (NotDetected); Coronavirus 229E PCR Not Detected (NotDetected); Coronavirus CoV-2 (COVID19)PCR Not Detected (NotDetected); Coronavirus HKU1 PCR Not Detected (NotDetected); Coronavirus NL63 PCR Not Detected (NotDetected); Coronavirus OC43PCR Not Detected (NotDetected); Human Metapneumovirus PCR Not Detected (NotDetected); Influenza A PCR Not Detected (NotDetected); Influenza B PCR Not Detected (NotDetected); Mycoplasma pneumoniae PCR Not Detected (NotDetected); Parainfluenza Virus 1 PCR Not Detected (NotDetected); Parainfluenza Virus 2 PCR Not Detected (NotDetected); Parainfluenza Virus 3 PCR Not Detected (NotDetected); Parainfluenza Virus 4 PCR Not Detected (NotDetected); Respiratory Syncytial VirusPCR Not Detected (NotDetected); Rhinovirus/Enterovirus PCR Not Detected (NotDetected)
[2024-06-03 13:31] LABS: Albumin Globulin Ratio 1.6 (0.9-2); Albumin Level 4.6 gm/dl (3.4-5.0); BUN Creatinine Ratio 22.7 (10-20); Calcium 9.6 mg/dl (8.6-10.3); Globulin 2.8 gm/dl (2.5-4.0); Potassium 3.8 mmol/L (3.5-5.1); Total Protein 7.4 gm/dl (6.0-8.3)
--- NOTE | 2024-06-03 14:03 | Emergency Department Note ---
Impression & Plan Hypertension, Headache, Neck pain ED Provider Note NAME: ASYA HERNANDEZ AGE: 73 SEX: M : 1950 ARRIVES VIA: Walk-In INFORMANT: Patient ED PROVIDER(S): Sharad Martinez DO CHIEF COMPLAINT: Headache and neck pain HPI: Patient is a 73-year-old male with a past medical history of tinnitus, chronic rhinitis, hypertension and Mnire's disease who presents to the ER for headache and neck pain. He notes the symptoms started over a week ago. He was treated with doxycycline for 7 days and stopped it 7 days ago following completion of the course for an ear wound. Since then he has been having frontal headache which wraps around and goes down the left side of his neck. It is aching with twisting, turning, and bending. Denies any fevers. Has full range of motion of his neck. No chest pain or shortness of breath. No nausea, vomiting, or diarrhea. PCP sent him in today as it was felt it would be easier to get CAT scans here then as an outpatient. No pain with chewing. No change or loss of vision. ADDITIONAL HISTORY OBTAINED: Per HPI Chronic Medical/Social Conditions Affecting Care: Per HPI PAST MEDICAL HISTORY:See Below PAST SURGICAL HISTORY:See Below FAMILY HISTORY:See Below SOCIAL HISTORY:See Below HOME MEDICATIONS:See Below ALLERGIES:See Below VITALS:See Below PHYSICAL EXAMINATION: GENERAL: Sitting up in bed, alert, well appearing, well nourished, no distress, non-toxic EYE EXAM: normal conjunctiva. PERRL and EOM's intact. OROPHARYNX: no exudate, no erythema, lips, buccal mucosa, and tongue normal and mucous membranes are moist NECK: supple, no nuchal rigidity, no adenopathy, non-tender LUNGS: Clear to auscultation. Normal chest wall mechanics HEART: no murmurs, S1 normal and S2 normal ABDOMEN: abdomen soft, non-tender, normo-active bowel sounds, no masses, no rebound or guarding. UPPER EXTREMITIES: upper extremities are grossly normal. LOWER EXTREMITIES: No pitting edema. NEURO EXAM: Normal sensorium, cranial nerves II-XII intact, normal speech, no weakness of arms, no weakness of legs. No drift. Finger to nose intact. Gross sensation intact. MEDICAL DECISION MAKING: Patient is a 73-year-old male who presents to the ER for headache and neck pain. IV was established and blood work was obtained. Labs show no significant leukocytosis or anemia. BMP with LFTs bilirubin is unremarkable. Troponin negative. Viral panel was negative. CT angios of the head neck were negative. Patient was given IV morphine although the pain was very mild. Blood pressure still did not improve. Systolics were in the 240s. He was given IV hydralazine. The trend down to 200. With this significant elevation of blood pressure she was discussed with the hospitalist for further evaluation management treatment. Consults/Care Managements Discussions: Per [facility] Triage Nursing notes reviewed. Limited review of prior medical records performed Vital Signs: reviewed and remarkable for HTN Differential diagnosis: Differential Diagnosis includes but is not limited to headache, tension headache, cluster headache, migraine, subarachnoid hemorrhage, meningitis, mass, central venous thrombus, concussion, trauma and epidural/subdural hemorrhage. ER treatment provided: See below Diagnostics interpreted by me include EKG and cardiac monitoring as listed below: -Cardiac Monitoring: An order was placed for continuous cardiac monitoring. The monitor shows a rate of 52 with sinus rhythm. -ECG: Sinus rhythm rate of 49 Normal axis No PVCs QTc 433 Septal Q waves -Laboratory studies:Interpreted by me as stated above in MDM and shown below. Imaging studies: Xrays: As interpreted by me: Portable AP upright 1 view of the chest shows no focal infiltrate CTs show: CT angio the head neck was negative per radiology Procedures:none Critical Care: I have personally spent 35 minutes of critical care time in the direct management of this patient. This includes bedside care, interpretation of diagnostic studies, and testing, discussion with consultants, patient, and family members, and other required patient management activities. This 35 minutes is in excess of all separately billable procedures. Past Med/Surg History Problem List (Updated 06/03/24 @ 20:51 by Sharad Martinez DO) Neck pain (Acute) Headache (Acute) Hypokalemia Mixed conductive and sensorineural hearing loss of right ear with restricted hearing of left ear Sensorineural hearing loss (SNHL) of left ear with restricted hearing of right ear Sensorineural hearing loss (SNHL) of both ears Tinnitus, bilateral Sensorineural hearing loss (SNHL) of right ear with restricted hearing of left ear Low frequency mixed component Hypertension (Acute) Otitis externa of left ear Chronic rhinitis Menieres disease Intermittent - improved with exercises Hypertension Medical History History of meningitis 1984 Hearing deficit BL GREEN- Wears hearing aids bilaterally History of migraine HLD (hyperlipidemia) Pt denies- takes statin for preventative secondary to age Surgical History S/P total knee arthroplasty History of nasal polypectomy History of arthroscopic knee surgery Rt History of cervical spinal surgery limited ROM "painful to look up" History of back surgery History of colonoscopy H/O elbow surgery 2016 - Lt H/O foot surgery 2005 - Rt H/O neck surgery 2018 & 2019 Hx of appendectomy Family History Father Hypertension Cancer Mother Stroke Denies family history of Hearing loss No family history of adverse response to anesthesia No family history of bleeding disorder Heart disease Allergies Kidney disease Asthma Social History Smoking Status: Never smoker Tobacco Type: Cigarettes Second Hand Exposure: No; Do You Dip or Chew Tobacco: No; Hx Alcohol Use: Yes Alcohol type: beer Alcohol Intake Frequency: Monthly or Less Hx Substance Use: No Preferred Language: Estonian Communication Ability: Effective Focuser Required: No Beliefs That Will Affect Care: None marital status: Current Living Situation: Spouse current occupational status: employed 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 [employer] Feels Safe at Home: Yes Assistive Devices: Walker Allergies Allergies Allergy/AdvReac Type Severity Reaction Status Date / Time amoxicillin Allergy Unknown Rash Verified 02/13/24 10:25 clavulanic acid Allergy Unknown RASH Verified 02/13/24 10:25 [From Augmentin] levofloxacin [From Levaquin] Allergy Unknown RASH Verified 02/13/24 10:25 Penicillins Allergy Unknown Rash Verified 02/13/24 10:25 [id number] Reductase AdvReac Intermediate per pt Unverified 06/03/24 18:00 Inhibitor they make his joints stiff and he's unable to move codeine AdvReac Unknown ileus Verified 02/13/24 10:25 Home Meds Home Medications Medication Instructions Recorded Confirmed multivitamin (Daily Multi-Vitamin 1 tab PO QAM 06/25/19 06/03/24 tablet) cholecalciferol (vitamin D3) 1 tab PO QAM 05/12/21 06/03/24 clonazepam 0.5 mg tablet 0.125 mg PO BID PRN anxiety 10/02/23 06/03/24 fluvoxamine 100 mg tablet 100 mg PO QPM #90 tabs 10/02/23 06/03/24 aspirin 81 mg tablet,delayed 81 mg PO DAILY 02/13/24 06/03/24 release Previous Rx's Medication Instructions Recorded potassium chloride 10 mEq 10 meq PO .COMPLEX #270 Tabs 09/30/23 tablet,extended release coenzyme Q10 200 mg capsule (Co 200 mg PO DAILY #30 caps 11/01/23 Q-10) carvedilol 12.5 mg tablet 12.5 mg PO BID #180 tabs 03/30/24 furosemide 20 mg tablet 20 mg PO QAM edema #90 tabs 04/17/24 losartan 100 mg tablet 100 mg PO QPM #90 tabs 05/26/24 Results & Data (ED) Vital Signs Vital Signs - 24 hr 06/03/24 11:45 06/03/24 14:18 06/03/24 14:33 Temperature 36.5 C Temperature Source Temporal Artery Scan Pulse Rate 50 L 50 L 44 L Pulse Rate from SpO2 Sensor Respiratory Rate 18 12 Respiratory Effort / Characteristics Non-Labored Spontaneous Respiratory Depth Normal Respiratory Pattern Regular Blood Pressure 193/98 H 226/102 H Blood Pressure Mean 129 143 Pulse Oximetry 98 98 Oxygen Delivery Method Room Air Room Air Sepsis Recent Fever Within 48 Hours No Sepsis New/Unexplained Change in Mental Status N/A Sepsis Action Taken by Nursing No Action Required 06/03/24 14:42 06/03/24 14:48 06/03/24 14:52 Temperature Temperature Source Pulse Rate 43 L 43 L Pulse Rate from SpO2 Sensor 43 L Respiratory Rate 12 13 Respiratory Effort / Characteristics Respiratory Depth Respiratory Pattern Blood Pressure 191/97 H 191/97 H Blood Pressure Mean 128 135 Pulse Oximetry 97 96 Oxygen Delivery Method Sepsis Recent Fever Within 48 Hours Sepsis New/Unexplained Change in Mental Status Sepsis Action Taken by Nursing 06/03/24 15:00 06/03/24 15:27 06/03/24 15:30 Temperature Temperature Source Pulse Rate 46 L Pulse Rate from SpO2 Sensor 46 L Respiratory Rate 11 L Respiratory Effort / Characteristics Respiratory Depth Respiratory Pattern Blood Pressure 204/96 H 216/102 H Blood Pressure Mean 144 151 Pulse Oximetry 96 Oxygen Delivery Method Sepsis Recent Fever Within 48 Hours Sepsis New/Unexplained Change in Mental Status Sepsis Action Taken by Nursing 06/03/24 15:30 06/03/24 16:17 06/03/24 16:27 Temperature Temperature Source Pulse Rate 56 L 47 L Pulse Rate from SpO2 Sensor 45 L Respiratory Rate 13 10 L Respiratory Effort / Characteristics Respiratory Depth Respiratory Pattern Blood Pressure 240/108 H Blood Pressure Mean 154 Pulse Oximetry 96 Oxygen Delivery Method Sepsis Recent Fever Within 48 Hours Sepsis New/Unexplained Change in Mental Status Sepsis Action Taken by Nursing 06/03/24 16:31 06/03/24 17:05 06/03/24 17:09 Temperature Temperature Source Pulse Rate 51 L Pulse Rate from SpO2 Sensor Respiratory Rate 19 Respiratory Effort / Characteristics Respiratory Depth Respiratory Pattern Blood Pressure 218/100 H 193/90 H Blood Pressure Mean 200 118 Pulse Oximetry Oxygen Delivery Method Sepsis Recent Fever Within 48 Hours Sepsis New/Unexplained Change in Mental Status Sepsis Action Taken by Nursing Laboratory Data 06/03/24 12:18 06/03/24 12:18 Lab Results 06/03/24 06/03/24 06/03/24 Range/Units 12:13 12:18 16:45 WBC 8.10 (4.8-10.8) K/ul RBC 5.51 (4.70-6.10) M/uL Hgb 17.4 (14.0-18.0) g/dl Hct 47.6 (42.0-52.0) % MCV 86.4 (80.0-100.0) fL MCH 31.6 (25.0-34.0) pg MCHC 36.6 H (32.0-36.0) g/dL RDW Std Deviation 44.0 (36.4-46.3) fL RDW Coeff of Nelly 14.0 (11.5-14.5) % Plt Count 194 (130-400) K/uL MPV 11.8 (9.4-12.4) fL Immature Gran % (Auto) 0.2 % Neut % (Auto) 71.0 % Lymph % (Auto) 19.9 % [place] % (Auto) 6.3 % Eos % (Auto) 1.9 % Baso % (Auto) 0.7 % Neut # (Auto) 5.75 (1.40-6.50) K/uL Lymph # (Auto) 1.61 (1.20-3.40) K/uL [place] # (Auto) 0.51 (0.11-0.59) K/uL Eos # (Auto) 0.15 (0.00-0.50) K/uL Baso # (Auto) 0.06 (0.00-0.20) K/uL Immature Gran # (Auto) 0.02 (0.01-0.20) K/uL ESR 4 (0-20) mm/hr Sodium 140 (136-145) mmol/L Potassium 3.8 (3.5-5.1) mmol/L Chloride 103 (98-107) mmol/L Carbon Dioxide 32 (21-32) mmol/L Anion Gap 5 (3-11) BUN 20 (6-23) mg/dl Creatinine 0.88 (0.6-1.4) mg/dl Est Cr Clr Drug Dosing 82.0 ml/min eGFR 91.93 BUN/Creatinine Ratio 22.7 H (10-20) Glucose 98 (70-99(Fasting)) mg/dl Calcium 9.6 (8.6-10.3) mg/dl Total Bilirubin 1.0 (0.2-1.0) mg/dl AST 27 (13-39) U/L ALT 24 (7-52) U/L Alkaline Phosphatase 78 (34-104) U/L Troponin I High Sens 7.7 (0-20) pg/ml C-Reactive Protein 0.52 H (0-0.5) mg/dl Total Protein 7.4 (6.0-8.3) gm/dl Albumin 4.6 (3.4-5.0) gm/dl Globulin 2.8 (2.5-4.0) gm/dl Albumin/Globulin Ratio 1.6 (0.9-2) Adenovirus (PCR) Not Detected (NotDetected) B. pertussis DNA (PCR) Not Detected (NotDetected) B.parapertussis DNA PCR Not Detected (NotDetected) Lyme Disease Screen Negative (Negative) C. pneumoniae DNA (PCR) Not Detected (NotDetected) Coronavirus OC43 (PCR) Not Detected (NotDetected) Coronavirus HKU1 (PCR) Not Detected (NotDetected) Coronavirus 229E (PCR) Not Detected (NotDetected) SARS-CoV-2 (PCR) Not Detected (NotDetected) Coronavirus NL63 (PCR) Not Detected (NotDetected) Human Metapneumovir PCR Not Detected (NotDetected) Influenza Type A (PCR) Not Detected (NotDetected) Influenza Type B (PCR) Not Detected (NotDetected) M. pneumoniae (PCR) Not Detected (NotDetected) Parainfluenza 1 (PCR) Not Detected (NotDetected) Parainfluenza 2 (PCR) Not Detected (NotDetected) Parainfluenza 3 (PCR) Not Detected (NotDetected) Parainfluenza 4 (PCR) Not Detected (NotDetected) RSV (PCR) Not Detected (NotDetected) Entero/Rhino (PCR) Not Detected (NotDetected) Administered Medications Nicardipine HCl 25 mg/ Sodium (Chloride) 250 mls @ 25 mls/hr IV .Q10H KATHERYN; Protocol Stop: 07/03/24 18:44 Last Titration: 06/03/24 20:05 Dose: 2.5 mg/hr, 25 mls/hr Documented By: Titration: 06/03/24 19:11 Dose: 5 mg/hr, 50 mls/hr Documented By: Admin: 06/03/24 18:59 Dose: 2.5 mg/hr, 25 mls/hr Documented By: SAMMI Co-signed By: JUAN Discontinued Medications Hydralazine HCl (Hydralazine Hcl 20 Mg/Ml Vial) 10 mg IV NOW STA Stop: 06/03/24 16:19 Last Admin: 06/03/24 16:24 Dose: 10 mg Documented By: SAMMI Sodium Chloride (Nss) 1,000 mls @ 999 mls/hr IV .Q1H1M ONE Stop: 06/03/24 15:03 Last Infusion: 06/03/24 15:19 Dose: Infused Documented By: Admin: 06/03/24 14:11 Dose: 999 mls/hr Documented By: ANT Ioversol (Optiray 320 125ml) 119 ml IV ONCE ONE Stop: 06/03/24 15:10 Last Admin: 06/03/24 15:10 Dose: 119 ml Documented By: TAWNYA Ketorolac Tromethamine (Ketorolac Tromethamine 15 Mg/Ml Vial) 10 mg IV NOW ONE Stop: 06/03/24 14:01 Last Admin: 06/03/24 14:10 Dose: 10 mg Documented By: ANT Losartan Potassium (Losartan Potassium 50 Mg Tab) 100 mg PO NOW STA Stop: 06/03/24 17:40 Last Admin: 06/03/24 18:10 Dose: 100 mg Documented By: SAMMI Morphine Sulfate (Morphine Sulfate 4 Mg/Ml 1 Ml Carp\\Vial) 4 mg IV NOW STA Stop: 06/03/24 16:06 Last Admin: 06/03/24 16:18 Dose: 4 mg Documented By: SAMMI Ondansetron HCl (Ondansetron Inj 2 Mg/Ml 2 Ml Vial) 4 mg IV NOW STA Stop: 06/03/24 16:06 Last Admin: 06/03/24 16:19 Dose: 4 mg Documented By: SAMMI Potassium Chloride (Potassium Chloride Crtab 20 Meq Tabcr) 20 meq PO NOW STA Stop: 06/03/24 17:50 Last Admin: 06/03/24 18:39 Dose: 20 meq Documented By: SAMMI Imaging Data Radiologist's Impression: Head CTA 06/03/24 14:00 CT angio head wo/w CLINICAL HISTORY: 73 years-old Male with green. Acute headache COMPARISON STUDY: CTA neck of same day, head CT 11/26/2023. TECHNIQUE: Unenhanced axial CT scan of the brain is performed. Subsequently, following the IV administration of cc of Optiray, CT angiogram of the brain was performed from the skull base to the vertex. Images are reviewed in the axial, sagittal, and coronal planes. 3-D MIPS images are created and assessed. IV contrast was administered without complication. All measurements were obtained according to NASCET criteria. A dose lowering technique was utilized adhering to the principles of ALARA. FINDINGS: CT BRAIN: There is no acute intracranial hemorrhage, midline shift, hydrocephalus, intracranial mass, territorial ischemia or abnormal extra-axial collections. No abnormal intra-axial or extra-axial enhancement. Involutional changes with white matter hypodensities suggestive of chronic microvascular ischemic disease . There is a more focal hypodense area within the right frontal lobe measuring 2 cm on image 17 of series 28 which is unchanged. Mastoid air cells and middle ear cavities are clear. No calvarial fracture. 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 Postoperative changes of the paranasal sinuses including bilateral maxillary antrostomy with partial ethmoidectomy changes. CT ANGIOGRAM OF THE BRAIN: The imaged bilateral internal carotid arteries are patent. The bilateral anterior and middle cerebral arteries are also patent. The vertebrobasilar system and posterior cerebral arteries are widely patent. There is no aneurysm, high-grade stenosis, or proximal branch occlusion identified. Dural sinuses appear patent. IMPRESSION: 1. No acute intracranial abnormality. 2. Unremarkable CTA of the head. ACT 112: Negative or not required by law. The above report was generated using voice recognition software. It may contain grammatical, syntax or spelling errors. Electronically signed by: Torres Manzano M.D. 06/03/2024 3:44 PM Neck CTA 06/03/24 14:00 CT ANGIOGRAPHY OF THE NECK WITH CONTRAST CLINICAL HISTORY: Posterior neck pain. COMPARISON STUDY: MRI of the cervical spine October 12, 2021. Technique: CT angiography of the carotid and vertebral arteries was obtained using Optiray and 3D reconstruction on an independent workstation. NASCET criteria was utilized. Automated exposure control was utilized for the study. A dose lowering technique was utilized adhering to the principles of ALARA. CT DOSE: 1511.25 mGy.cm Findings: Patient is status post C5-C6 anterior discectomy and fusion. Hardware is intact and there are no cervical spine fractures. This exam is mildly compromised by artifact related to the hardware. The bilateral common carotid, cervical internal carotid and vertebral arteries are patent. There is mild plaque within the left carotid bifurcation without stenosis. There is no aneurysm or dissection within the neck. Vertebral artery origins are suboptimally assessed due to artifact. The vertebral arteries are patent. The right vertebral artery is dominant. IMPRESSION: 1. No stenosis or dissection within the bilateral common carotid or cervical internal carotid. Mild atherosclerotic plaque. 2. Suboptimal evaluation of the vertebral arteries origins due to artifact. However, vertebral arteries patent. No dissection. ACT 112: Negative or not required by law. Electronically signed by: Fabio Saxena M.D. 06/03/2024 3:37 PM Chest X-Ray 06/03/24 16:20 Exam: CHEST (AP PORTABLE): HISTORY: Hypertension Comparison made to previous study 11/06/2023. The lung ortega are clear and normally expanded. The cardiovascular markings and pulmonary vascular pattern are normal. The mediastinal structures and laura are normal. The bones and soft tissues are normal. IMPRESSION: Stable appearance without acute disease seen. Electronically signed by Cole Ortiz 06-03-2024 5:08 PM Discharge Plan Visit Data Chief Complaint: Sinus Congestion/Pressure Stated Complaint: CONGESTION/PRESSURE, NECK PAIN, CT OF NECK/HEAD ED Provider: Sharad Martinez Discharge Problem: Hypertension, Headache, Neck pain Discharge Problem: Hypertension Qualifiers: Hypertension type: unspecified Qualified Code(s): I10 - Essential (primary) hypertension Headache Qualifiers: Headache type: unspecified Headache chronicity pattern: unspecified pattern I ntractability: not intractable Qualified Code(s): R51.9 - Headache, unspecified
[2024-06-03] MEDS: KETOROLAC TROMETHAMINE 15 MG/ML VIAL IV ONE ×2 (14:10→22:16)
[2024-06-03] MEDS: SODIUM CHLORIDE 0.9% 1,000 ML IV ONE (14:11)
[2024-06-03] MEDS: OPTIRAY 320 125ml IV ONE (15:10)
--- NOTE | 2024-06-03 15:38 | CT Scan Report ---
CT ANGIOGRAPHY OF THE NECK WITH CONTRAST CLINICAL HISTORY: Posterior neck pain. COMPARISON STUDY: MRI of the cervical spine October 12, 2021. Technique: CT angiography of the carotid and vertebral arteries was obtained using Optiray and 3D rec onstruction on an independent workstation. NASCET criteria was utilized. Automated exposure control was utilized for the study. A dose lowering technique was utilized adhering to the principles of ALA RA. CT DOSE: 1511.25 mGy.cm Findings: Patient is status post C5-C6 anterior discectomy and fusion. Hardware is intact and there a re no cervical spine fractures. This exam is mildly compromised by artifact related to the hardware. The bilateral common carotid, cervical internal carotid and vertebral arteries are patent. There is m ild plaque within the left carotid bifurcation without stenosis. There is no aneurysm or dissection w ithin the neck. Vertebral artery origins are suboptimally assessed due to artifact. The vertebral art eries are patent. The right vertebral artery is dominant. IMPRESSION: 1. No stenosis or dissection within the bilateral common carotid or cervical internal carotid. Mild a therosclerotic plaque. 2. Suboptimal evaluation of the vertebral arteries origins due to artifact. However, vertebral arteri es patent. No dissection. ACT 112: Negative or not required by law. Electronically signed by: Fabio Saxena M.D. 06/03/2024 3:37 PM
--- NOTE | 2024-06-03 15:46 | CT Scan Report ---
CT angio head wo/w CLINICAL HISTORY: 73 years-old Male with mike. Acute headache COMPARISON STUDY: CTA neck of same day, head CT 11/26/2023. TECHNIQUE: Unenhanced axial CT scan of the brain is performed. Subsequently, following the IV adminis tration of cc of Optiray, CT angiogram of the brain was performed from the skull base to the vertex. Images are reviewed in the axial, sagittal, and coronal planes. 3-D MIPS images are created and asses sed. IV contrast was administered without complication. All measurements were obtained according to N ASCET criteria. A dose lowering technique was utilized adhering to the principles of ALARA. FINDINGS: CT BRAIN: There is no acute intracranial hemorrhage, midline shift, hydrocephalus, intracranial mass, territori al ischemia or abnormal extra-axial collections. No abnormal intra-axial or extra-axial enhancement. Involutional changes with white matter hypodensities suggestive of chronic microvascular ischemic dis ease . There is a more focal hypodense area within the right frontal lobe measuring 2 cm on image 17 of series 28 which is unchanged. Mastoid air cells and middle ear cavities are clear. No calvarial fr acture. 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 Postoperative changes of the paranasal sinuses inc luding bilateral maxillary antrostomy with partial ethmoidectomy changes. CT ANGIOGRAM OF THE BRAIN: The imaged bilateral internal carotid arteries are patent. The bilateral anterior and middle cerebral arteries are also patent. The vertebrobasilar system and posterior cerebral arteries are widely logan nt. There is no aneurysm, high-grade stenosis, or proximal branch occlusion identified. Dural sinuses appear patent. IMPRESSION: 1. No acute intracranial abnormality. 2. Unremarkable CTA of the head. ACT 112: Negative or not required by law. The above report was generated using voice recognition software. It may contain grammatical, syntax o r spelling errors. Electronically signed by: Torres Manzano M.D. 06/03/2024 3:44 PM
[2024-06-03] MEDS: MoRPHine SULFATE 4 MG/ML 1 ML CARP\\VIAL IV STA (16:18)
[2024-06-03] MEDS: ONDANSETRON INJ 2 MG/ML 2 ML VIAL IV STA (16:19)
[2024-06-03] MEDS: hydrALAZINE HCL 20 MG/ML VIAL IV STA (16:24)
--- NOTE | 2024-06-03 16:57 | History & Physical Report ---
Date of Service June 03, 2024 Assessment & Plan (1) Hypertension: Plan: Patient in hypertensive urgency on admission; 240/108 with headache x1 week patient stated that he took his home medications this morning - recent switch from chlorthalidone to furosemide 04/17/2024 Given 10 Mg IV hydralazine in ER -> lowered pressures to 193/100, associated bradycardia (HR 47) CT head negative Renal function stable BUN/creatinine ratio mildly elevated 22.7, although appears baseline - ESR negative, CRP 0.52 - Appears no renal duplex on file, ordered - Given p.m. losartan 100 on admission - prn hydralazine 5 Mg IV Q6H for SBP >200 - if persistently high blood pressures after BM hypertension meds and as needed hydralazine, can consider nicardipine drip in PCU - would avoid beta-blockers at this time given bradycardic (2) Headache: Plan: likely secondary to hypertension Does have history of aseptic meningitis in 1983 - no nuchal rigidity, no kernig's/Brudzinski sign, afebrile, no leukocytosis - no evidence to suggest meningitis at this time (3) Hypokalemia: Plan: 3.8 on admission -> 20 meq PO ordered patient takes diuretics at home, along with 10 mEq potassium daily - continue (4) Menieres disease: (5) Sensorineural hearing loss (SNHL) of both ears: Plan: hearing aid use Plan Chronic stable diagnoses: HLD - continue ASA, history of myalgia with statin use VTE ppx: SCDs given hemotympanum Diet: Heart healthy Code status: DNR/DNI Dispo: PCU/tele given possible need for nicardipine drip if current management fails Admission and Anticipated Discharge Date Admission Date: 06/03/24 History of Present Illness Chief Complaint: Sinus pressure/ HTN Primary Care Provider: Marjorie Domínguez Patient is a 73-year-old male with past medical history of hypertension, Mnire's disease, BPH, migraines, OA/DDD, sensorineural hearing loss. He presents today due to headache/pressure. He was found to have a extremely high blood pressure, reaching up to 240/108. He was given 10 mg IV hydralazine in ER which lowered his blood pressure to 218/110. the patient stated that he was having ear pain about 1 month ago, he came to the ER and they treated his ear, some trauma/blood in his right ear remaining - He completed a course of antibiotics. He has had sinus pressure since then. About 1 week ago he started with a headache that radiates through the back of his neck, headache this on temporal region. He stated it is worse in the morning and gets better throughout the day. He takes his blood pressure at home and it has been stable. He has a history of persistently labile blood pressures. He does have a history of aseptic meningitis 1983, he states that it feels different than then. He also stated that he has had dizziness for the past few days. Patient denies fever, chills, vision changes, cough, dyspnea, dyspnea on exertion, chest pain, abdominal pain, nausea, vomiting, diarrhea, constipation, dysuria, hematuria, edema, numbness, tingling. Allergies Allergy/AdvReac Type Severity Reaction Status Date / Time amoxicillin Allergy Unknown Rash Verified 02/13/24 10:25 clavulanic acid Allergy Unknown RASH Verified 02/13/24 10:25 [From Augmentin] levofloxacin [From Levaquin] Allergy Unknown RASH Verified 02/13/24 10:25 Penicillins Allergy Unknown Rash Verified 02/13/24 10:25 [id number] Reductase AdvReac Intermediate per pt Unverified 06/03/24 18:00 Inhibitor they make his joints stiff and he's unable to move codeine AdvReac Unknown ileus Verified 02/13/24 10:25 Home Medications Medication Instructions Recorded Confirmed Type multivitamin (Daily Multi-Vitamin 1 tab PO QAM 06/25/19 06/03/24 History tablet) cholecalciferol (vitamin D3) 1 tab PO QAM 05/12/21 06/03/24 History potassium chloride 10 mEq 10 meq PO .COMPLEX #270 Tabs 09/30/23 06/03/24 Rx tablet,extended release clonazepam 0.5 mg tablet 0.125 mg PO BID PRN anxiety 10/02/23 06/03/24 History fluvoxamine 100 mg tablet 100 mg PO QPM #90 tabs 10/02/23 06/03/24 History coenzyme Q10 200 mg capsule (Co 200 mg PO DAILY #30 caps 11/01/23 06/03/24 Rx Q-10) aspirin 81 mg tablet,delayed 81 mg PO DAILY 02/13/24 06/03/24 History release carvedilol 12.5 mg tablet 12.5 mg PO BID #180 tabs 03/30/24 06/03/24 Rx furosemide 20 mg tablet 20 mg PO QAM edema #90 tabs 04/17/24 06/03/24 Rx losartan 100 mg tablet 100 mg PO QPM #90 tabs 05/26/24 06/03/24 Rx Past Med/Surg History Problem List (Updated 06/03/24 @ 17:06 by Jess Maxwell PA-C) Hypokalemia Mixed conductive and sensorineural hearing loss of right ear with restricted hearing of left ear Sensorineural hearing loss (SNHL) of left ear with restricted hearing of right ear Sensorineural hearing loss (SNHL) of both ears Tinnitus, bilateral Sensorineural hearing loss (SNHL) of right ear with restricted hearing of left ear Low frequency mixed component Hypertension (Acute) Otitis externa of left ear Chronic rhinitis Menieres disease Intermittent - improved with exercises Hypertension Medical History History of meningitis 1984 Hearing deficit [place]- Wears hearing aids bilaterally History of migraine HLD (hyperlipidemia) Pt denies- takes statin for preventative secondary to age Surgical History S/P total knee arthroplasty History of nasal polypectomy History of arthroscopic knee surgery Rt History of cervical spinal surgery limited ROM "painful to look up" History of back surgery History of colonoscopy H/O elbow surgery 2016 - Lt H/O foot surgery 2005 - Rt H/O neck surgery 2018 & 2019 Hx of appendectomy Family History Father Hypertension Cancer Mother Stroke Denies family history of Hearing loss No family history of adverse response to anesthesia No family history of bleeding disorder Heart disease Allergies Kidney disease Asthma Social History Smoking Status: Never smoker Tobacco Type: Cigarettes Second Hand Exposure: No; Do You Dip or Chew Tobacco: No; Hx Alcohol Use: Yes Alcohol type: beer Alcohol Intake Frequency: Monthly or Less Hx Substance Use: No Preferred Language: Malay Communication Ability: Effective Inspector Integrated Circuits Required: No Beliefs That Will Affect Care: None marital status: Current Living Situation: Spouse current occupational status: employed 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 Non-toxic appearing. HEENT- EOMI, mucous membranes moist. Hearing grossly intact. No neck pain to palpation. Kernig/Brudzinski sign negative. hematotypmaus to right ear. Heart-normal S1 and S2. No murmurs, rubs or gallops. Lungs-clear bilaterally, no respiratory distress, no accessory muscle use. Abdomen-normal bowel sounds and soft. No ascites noted. Non-tender. Extremities- no clubbing, cyanosis, or edema. Rheumatologic-normal range of motion. Psychiatric-normal affect. Results & Data Results & Data Vital Signs (Past 12 Hours) Vital Signs Temp Pulse Resp BP Pulse Ox O2 Del Method 06/03/24 16:31 218/100 H 06/03/24 16:27 47 L 10 L 06/03/24 16:17 240/108 H 06/03/24 15:30 56 L 13 96 06/03/24 15:30 216/102 H 06/03/24 15:27 46 L 11 L 96 06/03/24 15:00 204/96 H 06/03/24 14:52 191/97 H 06/03/24 14:48 43 L 13 96 06/03/24 14:42 43 L 12 191/97 H 97 06/03/24 14:33 44 L 06/03/24 14:18 50 L 12 226/102 H 98 Room Air 06/03/24 11:45 36.5 C 50 L 18 193/98 H 98 Room Air Code Status & VTE Plan Code Status DNR/DNI VTE Prophylaxis Plan VTE Prophylaxis will be ordered: Yes Supervising Physician Co-Signing Physician Notes Abdiel is a 73-year-old male with a past medical history of sensorineural hearing loss, hypertension, Mnire's disease who presented with a severe right earache of 1 day without hearing loss and he was found to be hypertensive on ER evaluation. CTA of the head and neck do not show any acute abnormality specifically no dissection. BioFire is negative. There is no leukocytosis. Patient is markedly hypertensive on ER assessment 2001 40 systolic. He has not had any vision change. Does have frontal headache Past med list reviewed: Aspirin, carvedilol, vitamin D, clonazepam, fluvoxamine, losartan, pravastatin, co-Q10, multivitamin, potassium chloride - Patient cath 02/2024: Nonobstructive coronary disease, 30 to 40% ostial left main stenosis, 30% proximal to mid LAD disease. He was seen at the bedside. He reports he does have a history of very labile blood pressure which has been in the 200s in the ER but which usually comes down to the 160s with simply continuing his home medications and without aggressive treatment. Reports he was seen in the ER after an infection and an injury to his eardrum trying to scoop wax out with an [id number] tip. Has had intermittent posterior occiput discomfort, some pain intermittently in his temples and some intermittent pain in his right ear although none in the ear or posterior to the ear at time of assessment. Does have some mild occiput tenderness to palpation. He is able to bend his chin to his chest without pain and does not have nuchal rigidity. He does not have any photosensitivity/phono sensitivity. Does have a little bilateral frontal congestion for which she is even using a [place] pot with sterile water, has not been using tap water. He does have a past history of aseptic meningitis many years ago which she feels felt completely different to this and notes that he has not had fever, chills, sweats or eye pain. Reports he follows with Dr. Gong and recently was switched from chlorthalidone to Lasix. He did take his carvedilol this morning, is due for his losartan. He reports that his heart rate does tend to run low, but he tolerates carvedilol well. Headache, hypertension ? Hypertensive. He does not have any focal neurologic deficits. He does have a history of right ear injury and infection and does still have some hemotympanum over there is no pain on palpation of the posterior ear, no pain on exam, he has no leukocytosis or fever and overall this appears to be improving. He does have some mild sinus congestion but turbinates are not overtly inflamed. He does not have nuchal rigidity, photosensitivity, Kernig/Brudzinski's, or fever to suggest meningitis. Given patient's very labile blood pressures in the past would treat conservatively to a goal of less than 180. He is not encephalopathic on admission assessment will give him his home losartan. Did respond to 10 mg of I V hydralazine to the 190s. Will follow with every hour blood pressure checks. beta blockers limited by bradycardia into the 50s although he does have a good chronotropic response. If persistent blood pressure greater than 180 with headache unable to be controlled with above then can switch to nicardipine gtt. Patient reports he has had labile blood pressure before and some whitecoat element on review of his chart he does appear to be generally persistently hypertensive despite multiple agents. Renal artery Doppler ordered. +tick exposure, no transaminitis or thrombocytopenia to suggest Anaplasma. Lyme is pending CRP/ESR pending. Does have some bilateral intermittent headache although no cording of the temples to suggest GCA CTAhead/neck unremarkable Agree with above PG Care Time/CCT Total # of Minutes Spent Total Time Spent with Patient: Total time spent is greater than 50% in coordination of care (as documented) at patient's floor/unit and/or counseling patient: Coding Level of Care Code 56331 INT INP/OBS CARE 2/55MIN Diagnoses Hypertension I10 Headache R51.9 Headache chronicity pattern: acute headache Headache type: unspecified Intractability: not intractable Hypokalemia E87.6 Meniere's disease of right ear H81.01 Laterality: right Sensorineural hearing loss (SNHL) of both ears H90.3 (2) Headache Headache chronicity pattern: acute headache Headache type: unspecified Intractability: not intractable Qualified Code(s): R51.9 - Headache, unspecified (4) Menieres disease Laterality: right Qualified Code(s): H81.01 - Meniere's disease, right ear
--- NOTE | 2024-06-03 17:08 | XRay Report ---
Exam: CHEST (AP PORTABLE): HISTORY: Hypertension Comparison made to previous study 11/06/2023. The lung ortega are clear and normally expanded. The cardiovascular markings and pulmonary vascular pattern are normal. The mediastinal structures and laura are normal. The bones and soft tissues are normal. IMPRESSION: Stable appearance without acute disease seen. Electronically signed by Cole Ortiz 06-03-2024 5:08 PM
[2024-06-03 17:34] LABS: Troponin I High Sensitivity 7.7 pg/ml (0-20)
[2024-06-03] MEDS ORDERED: hydrALAZINE HCL 20 MG/ML VIAL IV PRN ×2 (17:39→19:00)
[2024-06-03 18:05] LABS: C Reactive Protein 0.52 mg/dl (0-0.5)
[2024-06-03] MEDS: LOSARTAN POTASSIUM 50 MG TAB PO STA (18:10)
[2024-06-03] MEDS: POTASSIUM CHLORIDE CRTAB 20 MEQ TABCR PO STA (18:39)
[2024-06-03] MEDS ORDERED: STAT IV Infusion **Titration per Protocol STA (18:44)
[2024-06-03] MEDS: niCARdipine 25 MG in SODIUM CHLORIDE 0.9% 240 ML IV SCH (18:59)
[2024-06-03] MEDS ORDERED: DOCUSATE SODIUM 100 MG CAP PO PRN (20:54)
--- NOTE | 2024-06-03 20:59 | Ultrasound Report ---
Exam(s): US RENAL EXAM: US Duplex Arterial/Venous of the Kidneys, Complete CLINICAL HISTORY: Reason for exam: labile HTN. TECHNIQUE: Real-time duplex ultrasound scan of the kidneys integrating B-mode two- dimensional vascular structure, Doppler spectral analysis and color flow Doppler imaging. COMPARISON: None FINDINGS: Aorta: Unremarkable as visualized. Normal abdominal aorta. Right renal arteries: No acute findings. No occlusion or significant stenosis on color flow and spectral Doppler imaging. Normal waveform. Left renal arteries: No acute findings. No occlusion or significant stenosis on color flow and spectral Doppler imaging. Normal waveform. Renal veins: Unremarkable. The renal veins are patent bilaterally. Right kidney: Nonspecific slightly elevated resistive indices in the right intrarenal arteries, measuring up to 0.8. No hydronephrosis. Left kidney: Nonspecific slightly elevated resistive indices in the left intrarenal arteries, measuring up to 0.79. No hydronephrosis. IMPRESSION: No evidence for renal artery stenosis. Electronically signed by: Jeffery Nixon M.D. 06/03/24 20:58 PM
[2024-06-03] MEDS: ACETAMINOPHEN 325 MG TAB PO STA (21:26)
[2024-06-03] MEDS: POTASSIUM CHLORIDE 10 MEQ TABCR PO SCH (21:27)
[2024-06-03] MEDS: fluvoxaMINE MALEATE 50 MG TAB PO SCH (22:16)
[2024-06-03] MEDS: carvediloL 12.5 MG TAB PO SCH (22:17)
[2024-06-04] MEDS: RIZATRIPTAN BENZOATE 10 MG TAB PO ONE (00:39)
[2024-06-04] MEDS: ACETAMINOPHEN 325 MG TAB PO PRN (05:03)
[2024-06-04 05:33] LABS: Hematocrit (blood only) 44.9 % (42.0-52.0); Hemoglobin 16.2 g/dl (14.0-18.0); Mean Corpuscular Hemoglobin 31.2 pg (25.0-34.0); Mean Corpuscular Hgb Conc 36.1 g/dL (32.0-36.0); Mean Corpuscular Volume 86.3 fL (80.0-100.0); Mean Platelet Volume 11.8 fL (9.4-12.4); Platelet Count 174 K/uL (130-400); RDW Standard Deviation 44.1 fL (36.4-46.3); White Blood Count 7.96 K/ul (4.8-10.8)
[2024-06-04 05:46] LABS: BUN Creatinine Ratio 17.8 (10-20); C Reactive Protein 0.69 mg/dl (0-0.5); Creatinine Clr Calc Pharmacy 89.7 ml/min; Potassium 4.3 mmol/L (3.5-5.1)
[2024-06-04] MEDS: RIZATRIPTAN BENZOATE 10 MG TAB PO PRN (05:50)
[2024-06-04] MEDS: FUROSEMIDE 20 MG TAB PO SCH (07:24)
[2024-06-04] MEDS: ASPIRIN 81 MG ECTAB PO SCH (07:24)
[2024-06-04] MEDS: POTASSIUM CHLORIDE CRTAB 20 MEQ TABCR PO SCH (07:26)
--- NOTE | 2024-06-04 09:30 | Hospitalist Progress Note ---
Date of Service June 04, 2024 Assessment & Plan (1) Headache: Plan: It is likely to be secondary to tight suboccipital muscles, headache is a tension headache that starts on left side of the back of neck that wraps around on the left side to his ear to his eye. Hx of cervical neck surgery. 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 Headache is exactly replicated upon palpation of L suboccipital muscle. After palpation and reoccurrence of headache, blood pressure then spiked to 202/107. Recent ear infection draining can also cause local inflammation. Headache can also be secondary to HTN but given Start 1 dosage of ketorolac tromethamine for current pain Alternate ice and heat for pain Recommend topical Voltaren gel at the site 3-4 times a day Recommend continuing to exercise to increase blood flow Start Valium 5 mg PO for 5 days before returning to home medication - clonazepam. Follow with a physican for OMT sessions for neck pain Control hypertension via medications -- see below (2) Hypertension: Plan: Pt is currently taking carvedilol, chlorthalidone, losartan at home. He follows with cardiology and nephrology for HTN, typically measures 150s/70s at home. Has tried and was not able to tolerate amlodipine due to peripheral edema. Previous stress tests shows BP spiking up to 220s/100s when exercising. Prior athlete, currently on weight watchers and is active -- wants to lose 25 lb Current HTN spikes of 200s/100s in hospital is likely secondary to pain from headaches -- spike of HTN was reproduced upon reproduction of headache. Switch losartan 100 mg BID to olmesartan 40 mg b/c longer half life Continue Carvedilol 12.5 mg BID Switch furosemide to chlorthalidone, which is what he takes at home Consider adding a 4th HTN medication in the future but for now given HTN spikes are likely due to headache pain and pt is making lifestyle changes, can wait and see (3) Hearing deficit: Plan: Pt wears hearing aids but does not currently have them. He sees an cobbler mckay. (4) Hypokalemia: Plan: Replete Plan Code Status: DNR/DNI VTE Prophylaxis: SCDs Diet: Heart healthy Dispo: ICU Admission and Anticipated Discharge Date Admission Date: June 03, 2024 Subjective Patient is a 73 year old man with a prior hx of nephrolithiasis, Meniere's disease, BPH, migraine type headaches, degenerative disk disorder, and prior cervical spinal surgery coming in for a headache lasting a week. He believes it is due to his ear pain at the end of April, patient came in with otitis externa following a wound to his inner right ear caused by an earwax remover he inserted. He was given a course of antibiotics and his headache appeared a week after the resolution of the symptoms. He describes the headache as an 8/10 when bad, dull and throbbing, starting at the back of his head on the left side wrapping around to his front hindu. No aura. He has been taking tylenol and ibuprofen for it which helps some, around 2 pills a day. His headache is worse when he lays down. During this week, the headache comes and goes. His BP has been measuring 150s/70s at home. It is worse in the morning and slightly better at night. His headache is not associated with activity. No hx of head trauma. Hx of poorly controlled hypertension which he sees nephrology and cardiology for - on carvedilol, furosemide, and losartan but still measuring 150s/70s at home. He is adherent to his hypertensive medications and takes BP medications at 7 am and 7:30 pm. Hx of many surgeries Patient reports to being fairly active at home - aims for 10k steps a day, barely eats salt or processed foods. He has been eating more bread recently, maybe salt in these. He is motived to lose 30 lb but knee surgery 1.5 years ago meant that he work out less. 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 Denies smoking, drinking, drug use. Review of Systems Review of Systems: CONSTITUTIONAL: Denies weight loss, fever and chills. HEENT: Denies changes in vision and hearing. RESPIRATORY: Denies SOB and cough. CV: Denies palpitations and CP. GI: Denies abdominal pain, nausea, vomiting and diarrhea. : Denies dysuria and urinary frequency. PSYCHIATRIC: Denies recent changes in mood. Denies anxiety and depression. Physical Exam Physical Exam: GENERAL: Alert and oriented. No acute distress. Well-nourished. HEENT: EOMI. Anicteric. No scleral icterus. Normocephalic, searing pain exactly like his headache when suboccipital muscles were pressed on. Moist mucous membranes. Scar left throat and on back of neck 2-3 inches from prior back surgery. R ear red and likely scabbed over. L ear canal is small with cerumen. Some hearing loss bilaterally. LUNGS: Clear to auscultation bilaterally. No accessory muscle use. CARDIOVASCULAR: Regular rate and rhythm. No murmur. No JVD. ABDOMEN: Soft, non-tender and non-distended. EXTREMITIES: No peripheral edema. SKIN: No rashes or lesions. PSYCHIATRIC: Cooperative. Appropriate mood and affect. Results & Data Results & Data Vital Signs (Past 12 Hours) Vital Signs Temp Pulse Resp BP BP Pulse Ox O2 Del Method 06/04/24 08:21 56 L 13 94 06/04/24 08:00 168/84 H 06/04/24 08:00 36.7 C 06/04/24 07:57 55 L 17 93 06/04/24 07:30 173/91 H 06/04/24 07:27 59 L 16 93 06/04/24 07:15 162/76 H 06/04/24 07:09 54 L 15 94 06/04/24 07:00 174/89 H 06/04/24 07:00 174/89 H 06/04/24 07:00 54 L 13 92 06/04/24 06:00 50 L 15 168/87 H 95 Room Air 06/04/24 05:30 54 L 163/81 H 06/04/24 05:15 48 L 191/85 H 06/04/24 05:00 46 L 14 190/76 H 95 Room Air 06/04/24 04:00 45 L 14 143/64 H 94 Room Air 06/04/24 03:00 46 L 14 141/72 H 92 Room Air 06/04/24 02:00 46 L 16 129/63 94 Room Air 06/04/24 01:00 36.6 C 45 L 14 149/63 H 93 Room Air 06/04/24 00:00 36.5 C 14 126/55 L 92 Nasal Cannula 06/03/24 23:00 36.6 C 45 L 14 137/58 L 95 Room Air 06/03/24 22:47 46 L 06/03/24 22:26 37.1 C 18 141/66 H 95 Room Air 06/03/24 22:15 46 L 14 143/71 H 95 Room Air 06/03/24 21:31 54 L 19 144/77 H 96 Room Air Laboratory Results Higher CRP - 0.69. Negative ESR. Negative troponin. Diagnostic Findings Neck CTA, Head CTA, chest xray, renal artery duplex - all normal with no stenosis. Resident Supervision Co-Signing Physician Notes I independently saw and examined patient myself and agree with the history, examination finding and A&P as mentioned above. Any correction or addition as below 73 year with P/M/H of HTN, Non obstructive CAD, Hypokalemia presented to ED with severe headache, progressive since 4 days. His BP on arrival were as high as 240s systolic, Hydralazine was give in ED stat. Patient pretty regularly monitors BP at home, given his BP number at home and admission, Headache is likely to be cause of high blood pressure rather than the effect. He mentions H/O headache getting better on hiking following day of start. HTN: Continue Losartan 100 mg OD( Plan to switch to Olmesartan because of longer half life, however not on our formulary, hence will change on Discharge) Continue Carvedilol as previous dose Continue Chlorthalidone instead of frusemide Stop Nicardipine drip, monitor BP Downgrade to Med/Surg tele Bradycardia Sinus Bradycardia on Tele overnight: Likely athletic heart rate. Headache: Suboccipital Muscle tenderness+ OMT done at bedside; needs serial OMT Ketorolac 15 mg IV stat Given tylonol 650 PRN ongoing Heat/ cold alternate therapy seems helpful OMT on Outpatient basis Vallium as muscle relaxant started; continue for 5 days before starting Clonazepam. Dispo: He will be discharged to home tomorrow. I personally examined the patient and verified all yao points of history and exam, discussed case, and agree with decision making with Dr Carbajal and Lizbeth Burrell MS2 feeling better when i first see him. had bad headache and elevated BP but no visual changes or confusion. notes BP ~150-160 SBP before headache started, only this high since. taking a hike prior to admission helped headache. vitals noted nad heent nc at mmm ost/msk b/l suboccipitals high tone/VERY tender/decreased ROM - and suboccipital pressure replicated his headache nearly entirely - including "sinus" symptoms around his face. also after suboccipital pressure he had a bit of a residual headache at first - and BP check after was ~200/110 again. after this i did gentle myofascial and mild inhibitory pressure as well as passive unwinding - pt tolerated well headache -while it was certainly warranted to harbor concern that he was having a hypertensive crisis, after further review i do not believe that this was the case for several reasons: -no associated neuro s/s such as visual changes or confusion -headache prior to admission got better with cardiovascular exercise (a hike) which would be pretty inconsistent with what would be expected for a hypertensive headache -suboccipital pressure showed exquisite tenderness and reproduced all of his headache symptoms nearly directly; and further BP was under better control but immediately after suboccipital pressure and causing headache to recur some - BP then spiked again to about 200/110 --->suspect severe tension headache with some migranous features - ear infection preceding likely lead to more overall ENT inflammation and lymphatic congestion - which then likely allowed suboccipitals to get tighter / more spastic; 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 prior Cspine surgery (head frequently leaning forward posture with lower Cspine less mobile making it more likely that his upper Cspine bears the brunt of ROM) probably makes his suboccipitals tighter on a normal day -> whole situation came together to cause a "perfect storm" precipitating severe tension headache ---OMT as above, toradol for now (would hold off on any continuous churn buttermaker NSAIDs), ice/moist heat alternate, voltaren gel to suboccipitals, outpt OMT, sub valium instead of his regular clonazepam for now, mag HS tonight, outpt OMT uncontrolled HTN -as above noted, at time of admission was quite reasonable/responsible to assume BP was causing headache, but also as above outlined, i now very strongly suspect that headache was causing the BP spike. we discussed home meds / home control -- given that acute rise in BP was likely caused by headache, and home control (while suboptimal) was not disasterous - we decided to basically keep home regimen the same (carvedilol, chlorthalidone -> switch ARB from losartan to olmesartan just due to half life issues with losartan making it less reliable); can consider escalation further if needed - but since he's working on positive lifestyle change and baseline is more in the stage 2-3 range of uncontrolled, as long as BP settles back to his recent baseline, would continue these meds and lifestyle changes, and only escalate to further meds if lifestyle changes cease/fail or if BP worsens. likely home tomorrow - Resident Activity Tracking Resident Involvement: Resident Care Provided Care Provided: Adult Hospital Medicine (1) Headache Headache chronicity pattern: unspecified pattern Headache type: unspecified Intractability: not intractable Qualified Code(s): R51.9 - Headache, unspecified (2) Hypertension Hypertension type: unspecified Qualified Code(s): I10 - Essential (primary) hypertension (3) Hearing deficit Hearing loss type: sensorineural
[2024-06-04] MEDS: clonazePAM 0.5 MG TAB PO PRN (10:56)
--- OUTSIDE RECORDS SUMMARY | 2024-06-04 11:42 | External Medical Summary | Continuity of Care Document ---
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 Name Role Phone Martinez Domínguezskye Primary Care Physician [phone] Encounter [facility] [id number] Date(s): 05/15/24 - 05/15/24 [facility] 0 [facility] [address] [address] [phone] Encounter Diagnosis Body mass index [BMI] 32.0-32.9, adult(Discharge Diagnosis) - 05/15/24 Otitis externa of right ear(Discharge Diagnosis) - 05/15/24 HTN (hypertension)(Discharge Diagnosis) - 05/15/24 Otitis media of right ear(Discharge Diagnosis) - 05/17/24 Discharge Disposition: Home or Self Care Attending Physician: MD Jessica, [place] Allergies, Adverse Reactions, Alerts Substance Criticality Severity Reaction Reaction Severity Status amLODIPine Unable to assess criticality Mild ankle swelling Active codeine constipation Nausea Active atorvastatin muscle aches Acti ve penicillins Itching Rash Active Ragweed Itching of eye Activ e Trees 1 White cassie tree Activ e milk products Gastrointestinal upset Active 1white cassie Immunizations Given and Recorded Vaccine Date Status Refusal Reason pneumococcal 20-valent conjugate vaccine 01/07/23 Given SARS-CoV-2 (COVID-19) mRNA-1273 vaccine 1 07/19/21 Recorded SARS-CoV-2 (COVID-19) mRNA-1273 vaccine 08/30/20 G iven pneumococcal 13-valent vaccine 03/02/19 Given zoster vaccine, inactivated 08/25/18 Given zoster vaccine, inactivated 03/25/18 Given tetanus/diphtheria/pertuss, acel (Tdap) 05/10/17 G iven zoster vaccine live 05/10/17 Given zoster vaccine live 2 08/26/15 Recorded Not Given Vaccine Date Status Refusal Reason influenza virus vaccine, inactivated 05/20/19 Not Given Patient Refuses 1Result Comment: 2022-06-11: Historical information-source unspecified 2Result Comment: 2022-06-11: Historical information-source unspecified Medications Alive Men's 50+ Complete Multivitamin oral tablet Start: 03/02/24 10:54:00 AM EDT, 1 tab, PO, Daily Start Date: 03/02/24 Status: Ordered aspirin 81 mg oral delayed release tablet Start: 03/02/24 11:51:00 AM EDT, 1 tab, PO, Daily, Disp# 90 tab, other Start Date: 03/02/24 Status: Ordered carvedilol 12.5 mg oral tablet Start: 03/02/24 11:49:00 AM EDT, 1 tab, PO, bid, Disp# 180 tab, Refills: 3, Note to Pharmacy: increase dose to 12.5 mg bid, Pharmacy: [facility] Start Date: 03/02/24 Status: Ordered chlorthalidone 25 mg oral tablet Start: 03/03/24 6:07:00 PM EDT, 1 tab, PO, Daily, Disp# 90 tab, Refills: 3, Pharmacy: [facility] Start Date: 03/03/24 Status: Ordered clindamycin 300 mg oral capsule Start: 09/18/22 7:44:00 AM EST, See Instructions, Disp# 2 tab, Refills: 3, 2 tab PO one hour prior todental proceedure, Pharmacy: [facility] Start Date: 09/18/22 Status: Ordered clonazePAM 0.5 mg oral tablet Start: 05/05/24 3:31:00 PM EDT, See Instructions, Disp# 30 tab, Refills: 1, TAKE 1 TABLET BY MOUTH DAILY NEEDED FOR ANXIETY, MAY CUT THE PILL AND TRY LOWER DOSE, Pharmacy: [facility] Start Date: 05/05/24 Status: Ordered Coenzyme Q10 200 mg oral capsule Start: 03/02/24 11:45:00 AM EDT, 200 mg =, PO, Daily, Disp# 90 cap, Refills: 3, Note to Pharmacy: [facility], Pharmacy: [facility] Start Date: 03/02/24 Status: Ordered doxycycline hyclate 100 mg oral capsule Start: 05/15/24 4:48:00 PM EDT, 1 cap, PO, bid, Disp# 14 cap, Pharmacy: [facility] Start Date: 05/15/24 Stop Date: 05/22/24 Status: Ordered fluvoxaMINE 100 mg oral tablet Start: 08/23/23 2:24:00 PM EST, 1 tab, PO, qhs, Disp# 90 tab, Refills: 3, Pharmacy: [facility] Start Date: 08/23/23 Stop Date: 08/17/24 Status: Ordered furosemide 20 mg oral tablet Start: 03/31/24 3:11:00 PM EDT Start Date: 03/31/24 Status: Ordered losartan 100 mg oral tablet Start: 10/15/16 2:21:00 PM EDT, 1 tab, PO, Daily Start Date: 10/15/16 Status: Ordered potassium chloride 10 mEq oral tablet, extended release Start: 10/15/16 2:21:00 PM EDT, See Instructions, 2 tab PO qAM 1 tab PO qPM Start Date: 10/15/16 Status: Ordered pravastatin 20 mg oral tablet Start: 03/02/24 11:44:00 AM EDT, 1 tab, PO, qhs, Disp# 90 tab, Refills: 3, Note to Pharmacy: dc atorvastatin due to muschle aches;, Pharmacy: [facility] Start Date: 03/02/24 Status: Ordered ubiquinone 200 mg oral capsule Start: 11/01/23 12:00:00 AM EDT, 200 Unknown, Unknown, 0 Refill(s) Start Date: 11/01/23 Status: Ordered Vitamin D3 Start: 10/21/19 1:43:00 PM EDT, 25 mcg =, PO, Daily Start Date: 10/21/19 Status: Ordered Mental Status 05/15/24 Barriers to Learning one year Vision imp airment Mandatory Health Literacy Documentation Yes Health Literacy Communication Barriers N ever Primary Language Icelandic Problem List Condition Confirmation Course Effective Dates Status H ealth Status Informant Right knee pain Confirmed Active Arthritis of knee, right Confirmed Active Right cervical radiculopathy Confirmed Active Depression Confirmed Active Hearing loss Confirmed Active Status post right knee replacement Confirmed Active HLD (hyperlipidemia) Confirmed Active HTN (hypertension) Confirmed Active Meniere disease Confirmed Active Neck pain Confirmed Active Obese Confirmed Active Osteopenia Confirmed Active Pain 1 Confirmed Active Right knee pain Confirmed Active Right shoulder pain Confirmed Active PSA elevation Confirmed Active 1left elbow Diagnosis Diagnosis Type Effective Dates Health Status Cl inical Service Informant Body mass index [BMI] 32.0-32.9, adult Discharge Diagnosis 05/15/24 Non-Specified Otitis externa of right ear Discharge Diagnosis 05/15/24 Non-Specified HTN (hypertension) Discharge Diagnosis 05/15/24 Non-Specified Otitis media of right ear Discharge Diagnosis 05/17/24 Non-Specified Procedures Procedure Date Related Diagnosis Body Site Status Arthroplasty of right knee 06/26/22 Completed Audiological evaluation 1 11/14/21 Completed Audiological evaluation 2 01/25/21 Completed Chest X-ray 3 10/27/20 Completed Anterior cervical diskectomy , C5-C6. Anterior cervical fusion, C5-C6. 05/19/19 Completed Colonoscopy 4 08/02/17 Completed Meniscal repair- left knee 2015 Completed REPAIR ELBOW - left 2015 Compl eted Nasal sinus 2008 Completed Ankle- right 2005 Completed Back surgery 1984 Completed Appendectomy 1970 Completed 1impression: Sensorineural hearing loss (SNHL) of right ear with restricted hearing of left ear 2Today's results were consistent with a right greater than left sensorineural hearing loss with a low frequency conductive component at .75k Hz. Middle ear testing showed no/reduced compliance of the middle ear system for both ears. 3impression: Stable mild cardiomegaly. Otherwise, no acute process within the chest 4Repeat colonoscopy in 10 years One 3mm polyp in the rectum, removed with a cold biopsy forceps. resected and retrieved. Mild diverticulosis. There was no evidence of diverticular bleeding Rectum, biopsy of polyp: Hyperplastic polyp. There is no evidence of dysplasia or maligancy Vital Signs Most recent to oldest [Reference Range]: 1 Height 179 cm (05/15/24 4:05 PM) Patient Weight 104.8 kg (05/15/24 4:05 PM) Body Mass Index 32.71 kg/m2 (05/15/24 4:05 PM) Temperature [36.5-37.9 DegC] 36.7 DegC (05/15/24 4:05 PM) Heart Rate 66 bpm (05/15/24 4:05 PM) Respiratory Rate 18 br/min (05/15/24 4:05 PM) Blood Pressure 180/84mmHg (05/15/24 4:05 PM) Cuff Pulse Pressure 96 mmHg (05/15/24 4:05 PM) Social History Social History Type Response Smoking Status Never smoked cigaret inga Sex Male Sex Representation Male (finding) Implantable Device List Procedure Provider Procedure Date Device Type Site Unknown Unknown 04/20/20 Unknown Unknown Device Identifier Serial Number Lot or Batch Number Manufacturing Date Expiration Date Distinct Identification Code MRI Safety Implantable Status Assigning Authority Unknown Unknown N/A Unknown 05/19/21 Unknown Unknown Active Unkn own Unknown Unknown N/A Unknown Unknown Unknown Unknown Active Unkn own Unknown Unknown N/A Unknown Unknown Unknown Unknown Active Unkn own Procedure Provider Procedure Date Device Type Site Unknown Unknown 05/19/19 Unknown Unknown Device Identifier Serial Number Lot or Batch Number Manufacturing Date Expiration Date Distinct Identification Code MRI Safety Implantable Status Assigning Authority Unknown Unknown na Unknown 11/05/23 Unknown Unknown Active Unkn own Unknown Unknown na Unknown Unknown Unknown Unknown Active Unkn own Unknown Unknown na Unknown Unknown Unknown Unknown Active Unkn own Unknown Unknown na Unknown Unknown Unknown Unknown Active Unkn own Patient Care team information Care Team Personnel Name: Lawanda Mayorga Kayla Position: Pharmacist Member Role: Pharmacy - Lifetime Name: MD Domínguez Dongsheng Position: Physician - Family Med Member Role: Primary Care Provider Address: [address] [address] Name: Lawanda Teresa Kyle Position: Pharmacist Member Role: Pharmacy - Lifetime Address: [address] [place] [id number] Care Team Related Persons Name: LYNDSEY QUINTEROS Name: AMILCAR HERNANDEZ
[2024-06-04] MEDS ORDERED: IRBESARTAN 150 MG TAB PO SCH (17:00)
[2024-06-04] MEDS: diazePAM 5 MG TABLET PO PRN (17:33)
[2024-06-04] MEDS: KETOROLAC TROMETHAMINE 15 MG/ML VIAL IV ONE (17:33)
--- NOTE | 2024-06-04 18:11 | Billing Data ---
Date of Service June 04, 2024 Coding Level of Care Code 23474 SUB INP/OBS CARE MIN
[2024-06-04] MEDS: MAGNESIUM SULFATE / D5W 1 GM/100 ML BAG IV SCH (19:30)
[2024-06-04] MEDS ORDERED: DICLOFENAC SOD 1% GEL 100 GM TUBE EXT SCH (20:00)
[2024-06-04 20:28] VITALS: O2SAT 96
[2024-06-04] MEDS: DICLOFENAC SOD 1% GEL 100 GM TUBE EXT SCH (20:41)
[2024-06-04] MEDS ORDERED: POTASSIUM CHLORIDE CRTAB 20 MEQ TABCR PO SCH (21:00)
[2024-06-04] MEDS ORDERED: LOSARTAN POTASSIUM 50 MG TAB PO SCH (21:00)
[2024-06-04] MEDS: MAGNESIUM OXIDE 400 MG TAB PO SCH (21:47)
[2024-06-04] MEDS: diazePAM 5 MG TABLET PO SCH (21:47)
--- NOTE | 2024-06-05 05:29 | Electrocardiogram Report ---
Test Reason : Blood Pressure : */* mmHG Vent. Rate : 49 BPM Atrial Rate : 49 BPM P-R Int : 204 ms QRS Dur : 86 ms QT Int : 480 ms P-R-T Axes : 49 14 19 degrees QTcB Int : 433 ms Sinus bradycardia Septal infarct Abnormal ECG When compared with ECG of 06-Nov-2023 17:44, No significant change was found Confirmed by Hemanth Corona ([id number]) on 06/05/2024 5:28:41 AM Referred By: Donal William Confirmed By: Hemanth Corona
[2024-06-05 07:36] VITALS: BP 181/78; PULSE 76; RESP 18; TEMP 97.5
[2024-06-05] MEDS: CHLORTHALIDONE 25 MG TAB PO SCH (08:04)
[2024-06-05] MEDS: VALSARTAN 80 MG TAB PO SCH (08:04)
[2024-06-05] MEDS ORDERED: OLMESARTAN MEDOXOMIL 40 MG TAB PO SCH (09:00)
--- NOTE | 2024-06-05 10:36 | Discharge Summary ---
Date of Service June 05, 2024 Admission HPI Per Admitting Provider Patient is a 73-year-old male with past medical history of hypertension, Mnire's disease, BPH, migraines, OA/DDD, sensorineural hearing loss. He presents today due to headache/pressure. He was found to have a extremely high blood pressure, reaching up to 240/108. He was given 10 mg IV hydralazine in ER which lowered his blood pressure to 218/110. the patient stated that he was having ear pain about 1 month ago, he came to the ER and they treated his ear, some trauma/blood in his right ear remaining - He completed a course of antibiotics. He has had sinus pressure since then. About 1 week ago he started with a headache that radiates through the back of his neck, headache this on temporal region. He stated it is worse in the morning and gets better throughout the day. He takes his blood pressure at home and it has been stable. He has a history of persistently labile blood pressures. He does have a history of aseptic meningitis 1983, he states that it feels different than then. He also stated that he has had dizziness for the past few days. Patient denies fever, chills, vision changes, cough, dyspnea, dyspnea on exertion, chest pain, abdominal pain, nausea, vomiting, diarrhea, constipation, dysuria, hematuria, edema, numbness, tingling. Admission Exam Per Admitting Provider The patient is awake, alert and oriented 3, well developed and well nourished, normocephalic and atraumatic, in no acute distress. Non-toxic appearing. HEENT- EOMI, mucous membranes moist. Hearing grossly intact. No neck pain to palpation. Kernig/Brudzinski sign negative. hematotypmaus to right ear. Heart-normal S1 and S2. No murmurs, rubs or gallops. Lungs-clear bilaterally, no respiratory distress, no accessory muscle use. Abdomen-normal bowel sounds and soft. No ascites noted. Non-tender. Extremities- no clubbing, cyanosis, or edema. Rheumatologic-normal range of motion. Psychiatric-normal affect. Principal Diagnosis Hypertensive Urgency Sever Tension headache Discharge Exam GENERAL: Alert and oriented. No acute distress. Well-nourished. HEENT: EOMI. Anicteric. No scleral icterus. Normocephalic, searing pain exactly like his headache when suboccipital muscles were pressed on. Moist mucous membranes. Scar left throat and on back of neck 2-3 inches from prior back surgery. R ear red and likely scabbed over. L ear canal is small with cerumen. Some hearing loss bilaterally. LUNGS: Clear to auscultation bilaterally. No accessory muscle use. CARDIOVASCULAR: Regular rate and rhythm. No murmur. No JVD. ABDOMEN: Soft, non-tender and non-distended. EXTREMITIES: No peripheral edema. SKIN: No rashes or lesions. PSYCHIATRIC: Cooperative. Appropriate mood and affect. Discharge Data Allergies Allergy/AdvReac Type Severity Reaction Status Date / Time amoxicillin Allergy Unknown Rash Verified 02/13/24 10:25 clavulanic acid Allergy Unknown RASH Verified 02/13/24 10:25 [From Augmentin] levofloxacin [From Levaquin] Allergy Unknown RASH Verified 02/13/24 10:25 Penicillins Allergy Unknown Rash Verified 02/13/24 10:25 [id number] Reductase AdvReac Intermediate per pt Unverified 06/03/24 18:00 Inhibitor they make his joints stiff and he's unable to move codeine AdvReac Unknown ileus Verified 02/13/24 10:25 Consultations 06/03/24 16:38 ED Decision to Admit Stat Ordered Studies 06/03/24 14:00 CT angio head wo/w Stat CT angio neck with con Stat 06/03/24 17:39 US duplex renal art/vein BI Routine Hospital Course (1) Headache: (2) Hypertensive urgency: Plan (1) Headache: It is likely to be secondary to tight suboccipital muscles - Tender suboccipital muscles - Headache starts on left side of the back of neck that wraps around on the left side to his ear to his eye. - replicated upon palpation of L suboccipital muscle - Recent ear infection and local inflammation could be predisposing factor. Advise: -Alternate ice and heat for pain -Recommend topical Voltaren gel at the site 3-4 times a day -Recommend continuing to exercise to increase blood flow -Start Valium 5 mg PO for 5 days before returning to home medication - clonazepam. -Follow with a physican for OMT sessions for neck pain -Control hypertension via medications -- see below (2) Hypertensive Urgency: Pt is currently taking carvedilol, chlorthalidone, losartan at home. He follows with cardiology and nephrology for HTN, typically measures 150s/70s at home. Current HTN spikes of 200s/100s in hospital is likely secondary to pain from headaches -- spike of HTN was reproduced upon reproduction of headache. Labs: CMP, CBC: WNL Echo: 02/09 EF: 65-70% Switch losartan 100 mg BID to olmesartan 40 mg (b/c longer half life) Continue Carvedilol 12.5 mg BID Switch furosemide to chlorthalidone( better BP control than frusemide). Consider adding a 4th HTN medication in the future but for now given HTN spikes are likely due to headache pain and pt is making lifestyle changes, can wait and see Total Time Total Time Spent Total Time Spent (In Minutes): See attending's attestation Discharge Plan Discharge Items Patient Disposition: Home - Self-Care Reason For Visit: HTN URGENCY Discharge Diagnosis: Hypertensive Urgency Tension Headache( Sub-occiptal Muscle tender) Activity: Per Instructions section Non-emergency contact: Primary Care Provider, [employer] Call non-emergency contact if: your symptoms worsen Follow-up/Referrals: Marjorie Domínguez [Primary Care Provider] - 06/19/24 1:40 pm Diet: Heart Healthy Addtl Attending Provider Instructions: headache and elevated blood pressure -understandably when you first arrived, everyone had to work off the assumption that the headache was being caused by the significant elevations in blood pressure; after time and further review, fortunately it's pretty likely that this was NOT the case, and that rather, what happened was a really bad tension headache firing up your fight or flight nervous system -> which then can lead to elevations in blood pressure; since your blood pressure was already somewhat uncontrolled and a bit labile, then the added surge of fight or flight hormones put your pressure even higher. 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" i probably only see true symptomatic/acute high blood pressure crises a handful of times a year -->before being admitted, you noted that the headache got better with cardiovascular exercise; given that this increases blood flow it would both (a) fit with what we'd expect for a tension headache (good bloodflow is generally t he best muscle relaxant we've got) and (b) not fit with elevated blood pressure causing the headache - because you'd expect either no change or more likely a worsening with the added bloodflow/temporary increase in blood pressure that usually comes with exercise -->pushing on your suboccipital muscles reproduced your headache almost totally, and reproducing your headache spiked your blood pressure back to about 200/110 right before our eyes -the above is really long-winded - but it's so that you've got a good summary on why we had to initially worry that the blood pressure was causing a neurologic emergency, but that fortunately we've got a lot to support that this really wasn't the case! tension headache in more detail -the "anatomy of a tension headache" generally always starts with tightness in the suboccipital muscles (google image "suboccipital muscles to refresh yourself on those) -- tight suboccipitals can create a headache at the back of the neck/base of the skull - but then because the greater occipital nerve runs right through the triangle of suboccipital muscles, and the greater occipital nerve does sensation up and around our skull - pressure on that nerve from the muscles being too tight can then create a headache up and around our whole head -it's fairly common for suboccipital tension (or head pain in general) to lead to a migraine as well -> the sinus symptoms you were feeling were almost certainly a migraine phenomenon triggered by the suboccipital tension/pain - especially since pushing on those muscles not only reproduced your headache, but also caused those symptoms to return as well -specific to you - i suspect that you probably have a good deal of chronic suboccipital tension 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 and having less range of motion in your neck from the surgery - making it that your upper Cspine probably does more of the flexion (putting it under frequent tension); from there the ear infection would lead to a lot of overall head/neck inflammation and swelling/traffic jam in lymphatic drainage - making it a perfect storm for why this would all spiral out of control now -getting it better, we're going to approach this from multiple angles at the same time -OMT - we're working on getting you in with one of Dr Domínguez's partners to continue to work on your upper neck / suboccipitals to continue to get them looser -muscle relaxant - most muscle prescription muscle relaxants really don't work all that well - as we discussed if we're going to do it, we should "do it right" - and in my experience valium (diazepam) is really the most effect pill muscle relaxant we've got. Obviously it comes with the drawbacks of being sedating, and creating physical dependency. Because of that, we'll just have you take it at bedtime so that the sedation isn't a problem, and we'll only do it for about a week and then stop. It's in the same class of medications as the clonazepam (klonipin) that you normally take at bedtime - so while you're taking the valium (diazepam) don't take the clonazepam (and then once you're done with the valium just go back to the clonazepam like you were doing before) -topical diclofenac (voltaren gel) - while we wouldn't want you taking a "whole body" anti-inflammatory for any prolonged period of time, the topical anti-inflammatories work pretty well and have very little whole body absorption. typically i see about 80% of people get a benefit out of using voltaren gel - the only problem is it really needs to be used ~4 times a day for ~2-3 days before people even really start to see a benefit. do the best you can - more often / closer to 4 times a day will help more, but obviously with something that needs to be used that often no one is perfect. put it right on the suboccipitals//right on the tender area (yes, it'll be like "bad hair gel" but if it helps as i bet it will, it'll be worth it) -ice - ice acts as a local anti-inflammatory and the pressure of an ice pack can also help settle some of the suboccipital tension - do it about 15-20 minutes with the ice pack pushing right on the subocciptal area twice a day or so -moist heat - heat will dilate blood vessels - bringing in more blood flow - and as above noted / as we discussed, blood flow will really help muscles relax more. i'd recommend you follow up the ice with a heating pad for another ~10-20 minutes (and i'd do the heat after the ice so that you finish that part of treatment with dilated blood vessels/more of a muscle relaxant effect) -exercise - definitely keep up doing the cardiovascular exercise -- this will help bring blood flow everywhere, which will help relax the muscles as well. as we discussed, for me i'll often find that taking a run is the best way i can treat a tension headache in myself uncontrolled hypertension -as above outlined, there's a pretty solid body of evidence that the really high BP numbers were more just in reaction to the headache/pain/fight or flight response that pain causes -that said, your baseline BP control still isn't where we'd want it to be since you mostly still run in the 150's systolic -BP in that range is generally not an immediate threat - "today's 150's unchecked will lead to a heart attack 5 years from now" is a pretty reasonable rule - ie we don't want to let people run in that range indefinitely, but the harm it causes to blood vessels accumulates pretty slowly -because you're doing a lot with healthy eating and exercise, as long as we see that your BP gets back to more 150's systolic once the headache situation is better, it would be really reasonable to stay on the 3 meds you're already taking (minor tweak below) and give the exercise more time -- and fall back onto a 4th medication only if you're making no BP progress as you keep exercising (remember that your average high blood pressure patient is on 3 meds, so right now, while it feels like you're on a lot, you're basically "average" for people who need to treat their hypertension) -continue with the coreg (cavedilol) as you're taking it -there was the shuffle of diuretics for a little bit - but we'd recommend you stick with the chlorthalidone (and not lasix/furosemide) because between the two, chlorthalidone usually makes a bigger impact on BP numbers (whereas furosemide does a better job moving fluid off - which you fortunately don't really require) (i sent a new Rx for the chlorthalidone just to make sure you have it - but as we talked, i think you have it // that's what you were already taking at home - but wanted to be sure - so if you already have it, you don't need to get another bottle of the same thing) -we're going to switch your losartan over to valsartan - they're both in the same class (ARB medications) and work very similarly - the reason for the switch is just that losartan tends to wear off fairly quickly compared to other medications in the ARB class, making it less reliable for actually controlling BP; other than a change in the pill (and an "apples to oranges" change from 100mg to 320mg - both the same "highest dose for that pill") you probably won't notice any difference otherwise Pending Studies at Discharge: No Stand-Alone Forms: My [facility], Smoking Cessation Medications and DC Order Prescriptions: New valsartan [Diovan] 80 mg Tablet 320 mg PO DAILY Qty: 30 0RF chlorthalidone 25 mg Tablet 25 mg PO QAM Qty: 30 0RF diazepam 5 mg Tablet 5 mg PO HS Qty: 7 0RF Rx Instructions: take for 7 days as muscle relaxant, don't take clonazepam while taking valium (diazepam) diclofenac sodium [Voltaren Arthritis Pain] 1 % Gel 2 g EXT QID Qty: 100 0RF Continued potassium chloride 10 mEq tablet extended release 10 meq PO .COMPLEX Qty: 270 3RF Rx Instructions: 20 meq QAM & 10 meq QPM PO daily; fluvoxamine 100 mg tablet 100 mg PO QPM Qty: 90 clonazepam 0.5 mg tablet 0.125 mg PO BID PRN (Reason: anxiety) carvedilol 12.5 mg tablet 12.5 mg PO BID Qty: 180 2RF multivitamin [Daily Multi-Vitamin] tablet 1 tab PO QAM cholecalciferol (vitamin D3) 1 tab PO QAM coenzyme Q10 [Co Q-10] 200 mg capsule 200 mg PO DAILY Qty: 30 0RF aspirin 81 mg Tablet,Delayed Release (Dr/Ec) 81 mg PO DAILY Discontinued losartan 100 mg tablet 100 mg PO QPM Qty: 90 3RF furosemide 20 mg tablet 20 mg PO QAM Qty: 90 3RF Discharge Orders: Discharge Order (Routine); Ordered 06/05/24 Ordered By: Mimi Youngblood/Other Patient Handouts: Active Neck Rotation, High Blood Pressure Tx, Uncontrolled HBP Established, ED Occipital Neuralgia Admission Data Admit Date/Time: 06/03/24 17:46 Attending Provider: Sharad Tejeda Admit Provider: Dong Wolf Primary Care Provider: Marjorie Domínguez Other Providers: Dong Wolf Other Interventions: Discharge Summary Assessment (RN) Last Done: 06/05/24 11:47 Supervising Physician Co-Signing Physician Notes I personally examined the patient and verified all yao points of history and exam, discussed case, and agree with decision making with Dr Carbajal still has headache, but feels up to going home. updated on plans overall. vitals noted nad heent nc at mmm breathing unlabored no accessory muscles good effort skin no rashes no pallor or icterus headache -while it was certainly warranted to harbor concern that he was having a hyperte nsive crisis, after further review i do not believe that this was the case for several reasons: -no associated neuro s/s such as visual changes or confusion -headache prior to admission got better with cardiovascular exercise (a hike) which would be pretty inconsistent with what would be expected for a hypertensive headache -suboccipital pressure showed exquisite tenderness and reproduced all of his headache symptoms nearly directly; and further BP was under better control but immediately after suboccipital pressure and causing headache to recur some - BP then spiked again to about 200/110 -see dc instructions --->suspect severe tension headache with some migranous features - ear infection preceding likely lead to more overall ENT inflammation and lymphatic congestion - which then likely allowed suboccipitals to get tighter / more spastic; 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 prior 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 surgery (head frequently leaning forward posture with lower Cspine less mobile making it more likely that his upper Cspine bears the brunt of ROM) probably makes his suboccipitals tighter on a normal day -> whole situation came together to cause a "perfect storm" precipitating severe tension headache ---OMT done yesterday, ice/moist heat alternate, voltaren gel to suboccipitals, outpt OMT, sub valium instead of his regular clonazepam for now uncontrolled HTN -as above noted, at time of admission was quite reasonable/responsible to assume BP was causing headache, but also as above outlined, i now very strongly suspect that headache was causing the BP spike. we discussed home meds / home control -- given that acute rise in BP was likely caused by headache, and home control (while suboptimal) was not disasterous - we decided to basically keep home regimen the same (carvedilol, chlorthalidone -> switch ARB from losartan to valsartan just due to half life issues with losartan making it less reliable); can consider escalation further if needed - but since he's working on positive lifestyle change and baseline is more in the stage 2-3 range of uncontrolled, as long as BP settles back to his recent baseline, would continue these meds and lifestyle changes, and only escalate to further meds if lifestyle changes cease/fail or if BP worsens. Resident Activity Tracking Resident Involvement: Resident Care Provided Care Provided: Adult Hospital Medicine
--- NOTE | 2024-06-05 19:06 | Billing Data ---
Date of Service June 05, 2024 Coding Level of Care Code 67950 INP/OBS DISCH >30 MIN
== END 2024-06-05 12:42 | disposition home or self-care (01) | DRG 305 ==
LOC: ED 11:26 → SUATTDRO 17:46 → 1E 17:46 → INTOOBSV 17:46 → 1E 20:55 → 3W 06-04 20:17